=== PATIENT | female | born 1950 | race Caucasian/White ===

== ENCOUNTER 2016-06-22 01:35 | Emergency (ER) | payer MEDICARE ==
[~2016-06-22] VITALS: Ht 160 cm; Wt 68.0 kg
[2016-06-22 01:38] VITALS: BP 133/66; PULSE 102; RESP 16; TEMP 98.5; O2SAT 93
[2016-06-22] MEDS ORDERED: D31000CA (02:05)
[2016-06-22] MEDS ORDERED: AMLO10TA2 PO (02:05)
[2016-06-22] MEDS ORDERED: AMOX875T2 PO (02:05)
[2016-06-22] MEDS ORDERED: ASPI81TA81 (02:05)
[2016-06-22] MEDS ORDERED: SERT-132 PO (02:05)
[2016-06-22] MEDS ORDERED: LISI-515 PO (02:05)
[2016-06-22] MEDS ORDERED: SIMV40TA PO (02:05)
[2016-06-22] MEDS ORDERED: TRAD5TAB PO (02:05)
[2016-06-22] MEDS ORDERED: NOVOLOGP2 SQ (02:05)
[2016-06-22] MEDS ORDERED: INSU1INJ14 SQ (02:07)
[2016-06-22] MEDS ORDERED: CLOT10TR PO (03:16)
[2016-06-22] MEDS ORDERED: ALBUAER3 INH (03:16)
--- NOTE | 2016-06-22 03:16 | PD ---
HPI Chief Complaint: Medical Clearance Time Seen by Provider: 02:15 Travel History International Travel<30 days: No Contact w/Intl Traveler<30days: No Traveled to known affect area: No History of Present Illness HPI This is a 66-year-old female who presents to the emergency department with pain in her joints involving her hips and knees. The pain started today, has been constant, worse with walking, improved with rest. She did have a fever of 100 this morning. The patient has been sick with a productive cough with yellow sputum and a sore throat for one month now. She is completed a course of doxycycline and Keflex for these symptoms and her primary doctor yesterday put her on Augmentin. She says that her joint pain started after she took the Augmentin. PFSH Past Medical History Hx Anticoagulant Therapy: Yes (ASA) Cardiovascular Problems: Yes (HTN) Diabetes: Yes Patient Takes Glucophage: No Diminished Hearing: No (left side [place]) Hypertension: Yes ?: Not Menopausal: Yes Dilation and Curettage (D&C): Yes Social History Alcohol Use: Yes (occasional) Tobacco Use: Yes (<1PPD) Substance Use: No Allergies-Medications (Allergen,Severity, Reaction): Coded Allergies: No Known Allergies (Unverified , 06/22/16) Reported Meds & Prescriptions Reported Meds & Active Scripts Active Reported Tresiba Flextouch Pen Inj (Insulin Degludec Inj) 300 unit/3 ML Pen 30 Units SQ HS Amlodipine (Amlodipine Besylate) 10 Mg Tab 10 Mg PO DAILY Aspir-81 (Aspirin) 81 Mg Tabdr Tradjenta (Linagliptin) 5 Mg Tab 5 Mg PO DAILY Sertraline (Sertraline HCl) 50 Mg Tab 50 Mg PO DAILY Amoxicillin-Clavulanate 875-125 mg Tab 875 Mg PO BID not for use in CrCl <30 mL/minute Lisinopril 20 Mg Tab 20 Mg PO BID Simvastatin 40 Mg Tab 40 Mg PO HS D3 (Cholecalciferol) 1,000 Unit Cap Novolog Inj (Insulin Aspart) 1,000 Unit/10 Ml Vial 8 Units SQ TIDAC Review of Systems Except as stated in HPI: all other systems reviewed are Neg Physical Exam Narrative GENERAL:Well appearing, no acute distress SKIN: Warm and dry. HEAD: Atraumatic. Normocephalic. EYES: Pupils equal and round. No injection or drainage. ENT: Moist mucous membranes. White membrane overlying the tongue and posterior pharynx with no tonsillar exudate NECK: Trachea midline. CARDIOVASCULAR: Regular rate and rhythm. No murmur appreciated. RESPIRATORY: Clear to auscultation. Breath sounds equal bilaterally. GASTROINTESTINAL: Abdomen soft, non-tender, nondistended. MUSCULOSKELETAL: No obvious deformities. NEUROLOGICAL: Awake and alert. No obvious cranial nerve deficits. Moving all extremities. PSYCHIATRIC: Appropriate mood and affect; insight and judgment normal. Data Data Last Documented VS Vital Signs Date Time Temp Pulse Resp B/P Pulse Ox O2 Delivery O2 Flow Rate FiO2 06/22/16 01:38 98.5 102 16 133/66 93 MDM Medical Decision Making Medical Screen Exam Complete: Yes Emergency Medical Condition: Yes Interpretation(s) Afebrile, mild tachycardia, mild hypoxia Differential Diagnosis Bronchitis, viral syndrome, pneumonia, sepsis, COPD Narrative Course This is a 66-year-old female who presents the emergency department with symptoms consistent with bronchitis with a productive cough with yellow sputum and sore throat. She says she started to have body aches and joint pains today after taking Augmentin. She is very well-appearing and nontoxic on exam. She has evidence of thrush which I suspect is the etiology of her sore throat. I counseled patient on deferring antibiotics at this time as I suspect she has a viral syndrome causing her symptoms. I think she benefit from a bronchodilator given her smoking history. Patient will be discharged home and was counseled to discontinue Augmentin. Diagnosis Primary Impression: Thrush Additional Impression: Acute bronchitis, viral Patient Instructions: General Instructions Additional Instructions: If you develop severe shortness of breath, chest pain, or difficulty breathing return to the emergency department. Use albuterol every 4 hours for the next 2 days. Then use as needed for wheezing. Follow up with your primary care physician in 2-3 days if your symptoms have not improved. Med/Other Pt SpecificInfo: Prescription(s) given Scripts Albuterol 8.5 GM Inh (Proair Hfa 8.5 GM Inh)90 Mcg/Act Aer2 Puff INH Q6H PRN ( SHORTNESS OF BREATH) #1 INHALER Ref 0 108 mcg/actuation Prov:Margy Gil MD 06/22/16 Clotrimazole April 10 Mg Troc10 Mg PO 5 TIMES A DAY 7 Days Ref 0 Prov:Margy Gil MD 06/22/16 Disposition: 01 DISCHARGE HOME Condition: Stable Margy Gil MD Jun 22, 2016 03:16
== END 2016-06-22 04:04 | disposition home or self-care (01) ==
LOC: NEPE 01:35
DX: J20.9 Acute bronchitis, unspecified (principal); B37.9 Candidiasis, unspecified; E11.9 Type 2 diabetes mellitus without complications; I10 Essential (primary) hypertension; F17.210 Nicotine dependence, cigarettes, uncomplicated; Z79.82 Long term (current) use of aspirin
CPT/HCPCS: 99283

== ENCOUNTER 2017-09-07 15:02 | Inpatient (IN) | payer MEDICARE ==
[~2017-09-07] VITALS: Ht 160 cm; Wt 71.0 kg
[~2017-09-07 15:02] MED LIST: ALBUAER3 INH; AMLO10TA2 PO; AMOX875T2 PO; ASPI81TA81; CLOT10TR PO; INSU1INJ14 SQ; LISI-515 PO; NOVOLOGP2 SQ; SERT-132 PO; SIMV40TA PO; TRAD5TAB PO; [UNRECOGNIZED DRUG - CODE]
[2017-09-07 15:08] VITALS: BP 128/60; PULSE 90; RESP 22; TEMP 98.6; O2SAT 92
[2017-09-07] MEDS ORDERED: diphenhydrAMINE HCL 50 MG/ML VIAL IV PUSH ONE (15:45)
[2017-09-07] MEDS ORDERED: methylPREDNISolone SOD SUCC 125 MG/2 ML VIAL IV PUSH ONE (15:45)
--- NOTE | 2017-09-07 15:52 | PD ---
HPI Chief Complaint: Allergic/Adverse Reaction Time Seen by Provider: 15:23 Travel History International Travel<30 days: No Contact w/Intl Traveler<30days: No Traveled to known affect area: No History of Present Illness HPI 67-year-old female that presents to the ED for evaluation of possible allergic reaction. Per patient she was diagnosed by her doctor with pneumonia yesterday and started on Levaquin yesterday. She is took 1 dose yesterday and today she developed swelling and pain as well as rash on her chest and swelling medially to her joints in the arms and legs. She states that she has pain in this area. She denies any history of this in the past. She does have allergies to Augmentin. She states that she has been having cold-like symptoms for about a week now. She has a history of diabetes, high blood pressure, smokes. She states compliance with her medications except for the Levaquin which she did not take today because of the symptoms. She is concerned for reaction. She denies any throat swelling. She states having a lot of cough and congestion. She states that she did have a chest x-ray recently by the [facility] doctor that showed a pneumonia on both sides. She has no other medical issues. She denies any abdominal pain. Cough is productive. No recent travel. No sick contacts. PFSH Past Medical History Hx Anticoagulant Therapy: Yes (ASA) Cardiovascular Problems: Yes High Cholesterol: Yes Diabetes: Yes Patient Takes Glucophage: No Diminished Hearing: No (left side [place]) Hypertension: Yes Respiratory: Yes Menopausal: Yes Dilation and Curettage (D&C): Yes Social History Alcohol Use: Yes (occasional) Tobacco Use: Yes (<1PPD) Substance Use: No Allergies-Medications (Allergen,Severity, Reaction): Coded Allergies: amoxicillin (Verified Allergy, Severe, Joint Pain, 09/07/17) clavulanic acid (Verified Allergy, Severe, Joint Pain, 09/07/17) levofloxacin (Verified Allergy, Intermediate, 09/07/17) JOINT PAIN AND RASH Reported Meds & Prescriptions Reported Meds & Active Scripts Active Proair Hfa 8.5 GM Inh (Albuterol Sulfate) 90 Mcg/Act Aer 2 Puff INH Q6H PRN 108 mcg/actuation Clotrimazole April (Clotrimazole) 10 Mg Troc 10 Mg PO 5 TIMES A DAY 7 Days Reported Tresiba Flextouch Pen Inj (Insulin Degludec Inj) 300 unit/3 ML Pen 30 Units SQ HS Amlodipine (Amlodipine Besylate) 10 Mg Tab 10 Mg PO DAILY Aspir-81 (Aspirin) 81 Mg Tabdr Tradjenta (Linagliptin) 5 Mg Tab 5 Mg PO DAILY Sertraline (Sertraline HCl) 50 Mg Tab 50 Mg PO DAILY Amoxicillin-Clavulanate 875-125 mg Tab 875 Mg PO BID not for use in CrCl <30 mL/minute Lisinopril 20 Mg Tab 20 Mg PO BID Simvastatin 40 Mg Tab 40 Mg PO HS D3 (Cholecalciferol) 1,000 Unit Cap Novolog Inj (Insulin Aspart) 1,000 Unit/10 Ml Vial 8 Units SQ TIDAC Review of Systems Except as stated in HPI: all other systems reviewed are Neg Physical Exam Narrative GENERAL: SKIN: Warm and dry. Patient has an erythematous rash to the chest that is itchy and not painful. No other rashes noted. Patient does have some soft tissue swelling around the joints especially on the left wrist. No erythema noted however. HEAD: Atraumatic. Normocephalic. EYES: Pupils equal and round. No scleral icterus. No injection or drainage. ENT: No nasal bleeding or discharge. Mucous membranes pink and moist. Tongue is midline. No uvula deviation. NECK: Trachea midline. No JVD. CARDIOVASCULAR: Regular rate and rhythm. No murmurs, S3, S4. RESPIRATORY: No accessory muscle use. Clear to auscultation. Breath sounds equal bilaterally. GASTROINTESTINAL: Abdomen soft, non-tender, nondistended. Hepatic and splenic margins not palpable. MUSCULOSKELETAL: Extremities without clubbing, cyanosis, or edema. No obvious deformities. Full range of motion of the upper and lower extremities bilaterally. 2+ pulses bilaterally. NEUROLOGICAL: Awake and alert. No obvious cranial nerve deficits. Motor grossly within normal limits. Five out of 5 muscle strength in the arms and legs. Normal speech. PSYCHIATRIC: Appropriate mood and affect; insight and judgment normal. Data Data Last Documented VS Vital Signs Date Time Temp Pulse Resp B/P (MAP) Pulse Ox O2 Delivery O2 Flow Rate FiO2 09/07/17 15:17 94 Nasal Cannula 2.00 09/07/17 15:08 98.6 90 22 128/60 (82) Orders Orders Complete Blood Count With Diff (09/07/17 15:25) Comprehensive Metabolic Panel (09/07/17 15:25) Creatine Kinase (Cpk) (09/07/17 15:25) Magnesium (Mg) (09/07/17 15:25) Chest, Single Ap (09/07/17 ) Methylprednisolone So Succ Inj (Solumedr (09/07/17 15:45) Diphenhydramine Inj (Benadryl Inj) (09/07/17 15:45) Lactic Acid Sepsis Protocol (09/07/17 16:06) Blood Culture (09/07/17 16:06) CKMB% (09/07/17 15:30) CKMB (09/07/17 15:30) Sodium Chlorid 0.9% 500 Ml Inj (Ns 500 M (09/07/17 16:30) Ceftriaxone Inj (Rocephin Inj) (09/07/17 17:00) Azithromycin Inj (Zithromax Inj) (09/07/17 17:00) Complete Blood Count With Diff (09/08/17 06:00) Basic Metabolic Panel (Bmp) (09/08/17 06:00) Magnesium (Mg) (09/08/17 06:00) Sodium Chloride 0.9% Flush (Ns Flush) (09/07/17 17:00) Sodium Chloride 0.9% Flush (Ns Flush) (09/07/17 21:00) Ceftriaxone Inj (Rocephin Inj) (09/08/17 18:00) Azithromycin (Zithromax) (09/08/17 09:00) Methylprednisolone So Succ Inj (Solumedr (09/07/17 17:00) Admit To Inpatient (09/07/17 ) Code Status (09/07/17 17:00) Vital Signs (Adult) Q4H (09/07/17 17:00) Activity Oob With Assistance PRN (09/07/17 17:00) Notify Parameters (09/07/17 17:00) Intake + Output Q8H (09/07/17 17:00) ^ Smoking Cessation Counseling (09/07/17 17:00) Diet 1800 Ada Cons Carb (09/07/17 Dinner) Chest, Pa & Lat (09/08/17 08:00) Resp Oxygen Mike C Titrat 1-4 L (09/07/17 ) Consult Pt Eval & Treat (09/07/17 17:00) Scd Bilateral/Knee High MARI.BID (09/07/17 17:00) Inpatient Certification (09/07/17 ) Albuterol-Ipratropium Neb (Duoneb Neb) (09/07/17 20:00) Amlodipine (Norvasc) (09/08/17 09:00) Lisinopril (Prinivil) (09/07/17 21:00) Sertraline (Zoloft) (09/08/17 09:00) Patient Own Medication (09/08/17 09:00) Pravastatin (Pravachol) (09/07/17 21:00) Insulin Aspart Supplemtl Scale (Novolog (09/07/17 21:00) Insulin Detemir Inj (Levemir Inj) (09/07/17 21:00) Admit Order (Ed Use Only) (09/07/17 17:11) Labs Laboratory Tests Test 09/07/17 15:30 09/07/17 16:10 White Blood Count 17.8 TH/MM3 Red Blood Count 3.87 MIL/MM3 Hemoglobin 12.2 GM/DL Hematocrit 34.8 % Mean Corpuscular Volume 89.8 FL Mean Corpuscular Hemoglobin 31.5 PG Mean Corpuscular Hemoglobin Concent 35.1 % Red Cell Distribution Width 12.7 % Platelet Count 337 TH/MM3 Mean Platelet Volume 8.1 FL Neutrophils (%) (Auto) 87.0 % Lymphocytes (%) (Auto) 5.1 % Monocytes (%) (Auto) 7.2 % Eosinophils (%) (Auto) 0.7 % Basophils (%) (Auto) 0.0 % Neutrophils # (Auto) 15.5 TH/MM3 Lymphocytes # (Auto) 0.9 TH/MM3 Monocytes # (Auto) 1.3 TH/MM3 Eosinophils # (Auto) 0.1 TH/MM3 Basophils # (Auto) 0.0 TH/MM3 CBC Comment DIFF FINAL Differential Comment Blood Urea Nitrogen 29 MG/DL Creatinine 1.44 MG/DL Random Glucose 102 MG/DL Total Protein 6.8 GM/DL Albumin 2.5 GM/DL Calcium Level 8.8 MG/DL Magnesium Level 2.1 MG/DL Alkaline Phosphatase 131 U/L Aspartate Amino Transf (AST/SGOT) 49 U/L Alanine Aminotransferase (ALT/SGPT) 65 U/L Total Bilirubin 0.5 MG/DL Sodium Level 135 MEQ/L Potassium Level 4.0 MEQ/L Chloride Level 100 MEQ/L Carbon Dioxide Level 25.0 MEQ/L Anion Gap 10 MEQ/L Estimat Glomerular Filtration Rate 36 ML/MIN Total Creatine Kinase 249 U/L Creatine Kinase MB 2.0 NG/ML Creatine Kinase MB % 0.8 % Lactic Acid Level 0.7 mmol/L MDM Medical Decision Making Medical Screen Exam Complete: Yes Emergency Medical Condition: Yes Medical Record Reviewed: Yes Interpretation(s) CBC & BMP Diagram 09/07/17 15:30 Total Protein 6.8, Albumin 2.5 L, Calcium Level 8.8, Magnesium Level 2.1, Alkaline Phosphatase 131 H, Aspartate Amino Transf (AST/SGOT) 49 H, Alanine Aminotransferase (ALT/SGPT) 65 H, Total Bilirubin 0.5 Last Impressions Chest X-Ray 09/07/17 0000 Signed Impressions: Service Date/Time: Saturday, September 07, 2017 15:44 - CONCLUSION: 1. Left basilar infiltrate. Treatment and followup to resolution. Arnol Cohen MD lactic acid WNL Differential Diagnosis Allergic reaction versus pneumonia versus bronchitis versus worsening pneumonia versus dehydration versus liver injury versus rhabdo versus failed outpatient treatment Narrative Course 67-year-old female that presents to the ED for evaluation of an allergic reaction of pneumonia. Patient was properly examined and was found to have signs and symptoms of unclear etiology but likely reaction to the Levaquin. Levaquin was added to her allergies. She was given Solu-Medrol and Benadryl here IV. Labs and imaging were ordered. Labs and imaging showed elevated white blood cell count as well as elevated LFTs and kidney function appears to be abnormal. We do not have any records of previous labs and this could be new secondary to the infection. By CURB-65 patient has moderate risk for mortality and recommendation is observation versus inpatient. Patient has not really failed outpatient treatment she only took 1 dose of the Levaquin but do recommend admission for further eval per my attending Dr Chaudhari. Patient will start IV ceftriaxone as well as azithromycin. [facility] doctor susan and Dr Simon agrees to admission. Sepsis Criteria SIRS Criteria (2 or more): RR > 20 or PaCO2 < 32, WBC > 02355, < 4000 or > 10 % bands Sepsis Criteria (SIRS+source): Infect source susp/known Criteria Outcome: Meets sepsis criteria Diagnosis Primary Impression: PNA (pneumonia) Qualified Codes: J18.1 - Lobar pneumonia, unspecified organism Additional Impression: MAGALY (acute kidney injury) Admitting Information Admitting Physician Requests: Admit Bunny Gilmore Sep 07, 2017 15:52
[2017-09-07 15:58] LABS: AUTOMATED NEUTROPHIL # 15.5 TH/MM3 (1.8-7.7); EOSINOPHIL # 0.1 TH/MM3 (0-0.4); EOSINOPHIL % 0.7 % (0.0-4.0); HEMATOCRIT 34.8 % (35.0-46.0); HEMOGLOBIN 12.2 GM/DL (11.6-15.3); LYMPH % 5.1 % (9.0-44.0); LYMPHOCYTE # 0.9 TH/MM3 (1.0-4.8); MEAN CELL VOLUME 89.8 FL (80.0-100.0); MEAN CORPUSCULAR HEMOGLOBIN 31.5 PG (27.0-34.0); MEAN CORPUSCULAR HGB CONC 35.1 % (32.0-36.0); MEAN PLATELET VOLUME 8.1 FL (7.0-11.0); MONO % 7.2 % (0.0-8.0); MONOCYTE # 1.3 TH/MM3 (0-0.9); PLATELET COUNT 337 TH/MM3 (150-450); RED BLOOD COUNT 3.87 MIL/MM3 (4.00-5.30); RED CELL DISTRIBUTION WIDTH 12.7 % (11.6-17.2); WHITE BLOOD COUNT 17.8 TH/MM3 (4.0-11.0)
--- NOTE | 2017-09-07 16:07 | RADRPT ---
EXAM DATE/TIME: 09/07/2017 15:44 [place] COMPARISON: No previous studies available for comparison. INDICATIONS : Shortness of breath. MEDICAL HISTORY : Chronic obstructive pulmonary disease. Hypertension SURGICAL HISTORY : None. ENCOUNTER: Initial ACUITY: 2 days PAIN SCORE: 0/10 LOCATION: Bilateral chest FINDINGS: A single view of the chest demonstrates left basilar infiltrate. Right lung clear. Osseous structure s are intact. CONCLUSION: 1. Left basilar infiltrate. Treatment and followup to resolution. Arnol Cohen MD on September 07, 2017 at 16:04 Board Certified Radiologist. This report was verified electronically.
[2017-09-07 16:24] LABS: ALBUMIN 2.5 GM/DL (3.4-5.0); ALT (GPT) 65 U/L (10-53); AST (GOT) 49 U/L (15-37); BLOOD UREA NITROGEN 29 MG/DL (7-18); CALCIUM 8.8 MG/DL (8.5-10.1); CHLORIDE 100 MEQ/L (98-107); CREATININE 1.44 MG/DL (0.50-1.00); GLOMERULAR FILTRATION RATE 36 ML/MIN (>89); GLUCOSE,RANDOM 102 MG/DL (74-106); MAGNESIUM 2.1 MG/DL (1.5-2.5); SODIUM (NA) 135 MEQ/L (136-145)
[2017-09-07 16:26] LABS: ALKALINE PHOSPHATASE 131 U/L (45-117); TOTAL BILIRUBIN ADULT 0.5 MG/DL (0.2-1.0); TOTAL PROTEIN 6.8 GM/DL (6.4-8.2)
[2017-09-07] MEDS ORDERED: SODIUM CHLORID 0.9% 500 ML INJ 500 ML IV ONE (16:30)
[2017-09-07] MEDS ORDERED: methylPREDNISolone SOD SUCC 40 MG/1 ML VIAL IV PUSH SCH (17:00)
[2017-09-07] MEDS ORDERED: AZITHROMYCIN INJ 500 MG in SODIUM CHLOR 0.9% 250 ML INJ 250 ML IV ONE (17:00)
[2017-09-07] MEDS ORDERED: SODIUM CHLORIDE 0.9% FLUSH 10 ML FLUSH IV FLUSH PRN (17:00)
[2017-09-07] MEDS ORDERED: cefTRIAXone INJ 1,000 MG in SODIUM CHLORIDE 0.9% INJ 100 ML IV ONE (17:00)
--- NOTE | 2017-09-07 17:12 | HHI.HP ---
HPI Service [facility] Hospitalists Primary Care Physician Cherri Sanon M.D. Admission Diagnosis Pneumonia, medication reaction Chief Complaint: "Allergic reaction" Travel History International Travel<30 Days: No Contact w/Intl Traveler <30 Da: No Traveled to Known Affected Are: No History of Present Illness This is a 67-year-old female patient with past medical history which includes depression, chronic kidney disease stage III, diabetes mellitus, hypertension, hyperlipidemia, current tobacco use and PAD status post stent bilateral external iliac arteries. Patient was seen yesterday at her outpatient PCP Dr. Sanon office with complaints of generalized malaise 1 week rhinorrhea productive cough and congestion with mild fever 1 week. Prior to feeling unwell patient traveled to visit her granddaughter in [place]. Chest x-ray () obtained and revealed patchy infiltrates at both lung bases particularly the left base rule out pneumonia. Patient diagnosed with bilateral pneumonia and started on Levaquin. Patient took 1 dose of Levaquin yesterday and then today she developed a rash on her chest and swelling of her bilateral elbows and knees. Patient also reports pain in her upper and lower extremity joints. Patient denies any throat swelling, SOB or difficult swallowing. Patient denies chest pain or sick contacts. Chest x-ray (09/07)revealed left basal infiltrate. Also distended appearance of bowel seen on CXR Patient reports last BM 3 days again. Patient reports some time she will go 3- 4 days between BMs and sometime she has 3-4 BMs in a day. Patient denies taking narcotic medication or laxatives. Review of Systems Constitutional: COMPLAINS OF: Fatigue, Fever, DENIES: Chills Eyes: DENIES: Blurred vision, Diplopia, Vision loss Respiratory: COMPLAINS OF: Cough, Sputum production, DENIES: Shortness of breath Cardiovascular: DENIES: Chest pain, Dyspnea on Exertion Gastrointestinal: DENIES: Abdominal pain, Nausea, Vomiting Musculoskeletal: COMPLAINS OF: Joint pain, Muscle aches, Stiffness, Joint Swelling Integumentary: COMPLAINS OF: Rash Neurologic: DENIES: Abnormal gait, Headache, Localized weakness, Speech Problems Psychiatric: DENIES: Anxiety, Confusion, Depression Past Family Social History Past Medical History depression, chronic kidney disease stage III, diabetes mellitus, hypertension, hyperlipidemia, current tobacco use and PAD status post stent bilateral external iliac arteries Past Surgical History stent bilateral external iliac arteries Tonsillectomy Reported Medications Proair Hfa 8.5 GM Inh (Albuterol Sulfate) 90 Mcg/Act Aer 2 Puff INH Q6H PRN 108 mcg/actuation Clotrimazole April (Clotrimazole) 10 Mg Troc 10 Mg PO 5 TIMES A DAY 7 Days Tresiba Flextouch Pen Inj (Insulin Degludec Inj) 300 unit/3 ML Pen 30 Units SQ HS Amlodipine (Amlodipine Besylate) 10 Mg Tab 10 Mg PO DAILY Aspir-81 (Aspirin) 81 Mg Tabdr Tradjenta (Linagliptin) 5 Mg Tab 5 Mg PO DAILY Sertraline (Sertraline HCl) 50 Mg Tab 50 Mg PO DAILY Amoxicillin-Clavulanate 875-125 mg Tab 875 Mg PO BID not for use in CrCl <30 mL/minute Lisinopril 20 Mg Tab 20 Mg PO BID Simvastatin 40 Mg Tab 40 Mg PO HS D3 (Cholecalciferol) 1,000 Unit Cap Novolog Inj (Insulin Aspart) 1,000 Unit/10 Ml Vial 8 Units SQ TIDAC Allergies: Coded Allergies: amoxicillin (Verified Allergy, Severe, Joint Pain, 09/07/17) clavulanic acid (Verified Allergy, Severe, Joint Pain, 09/07/17) levofloxacin (Verified Allergy, Intermediate, 09/07/17) JOINT PAIN AND RASH Family History Noncontributory Social History Rare EtOH Tobacco abuse one half pack per day Denies illicit drug use Physical Exam Vital Signs Vital Signs Date Time Temp Pulse Resp B/P (MAP) Pulse Ox O2 Delivery O2 Flow Rate FiO2 09/07/17 15:17 94 Nasal Cannula 2.00 09/07/17 15:08 98.6 90 22 128/60 (82) 92 Physical Exam GENERAL: This is a well-nourished, well-developed patient, appears fatigued SKIN: faint erythematous rash across chest EYES: Extraocular motions intact. No scleral icterus. No injection or drainage. ENT: Nose without bleeding, purulent drainage or septal hematoma. Throat without erythema, tonsillar hypertrophy or exudate. Uvula midline. Airway patent. NECK: Trachea midline. No JVD or lymphadenopathy. Supple, nontender, no meningeal signs. CARDIOVASCULAR: Regular rate and rhythm RESPIRATORY: Decreased air movement. rhonchi bilateral lower lobes GASTROINTESTINAL: Abdomen soft, non-tender, nondistended. Normoactive bowel sounds x 4 quadrants MUSCULOSKELETAL: Extremities without clubbing, cyanosis, or edema. No joint tenderness, effusion, or edema noted. No calf tenderness. Negative Homans sign bilaterally. NEUROLOGICAL: Awake and alert. No focal deficits noted. Motor and sensory grossly within normal limits. Five out of 5 muscle strength in all muscle groups. Laboratory Laboratory Tests Test 09/07/17 15:30 09/07/17 16:10 White Blood Count 17.8 Red Blood Count 3.87 Hemoglobin 12.2 Hematocrit 34.8 Mean Corpuscular Volume 89.8 Mean Corpuscular Hemoglobin 31.5 Mean Corpuscular Hemoglobin Concent 35.1 Red Cell Distribution Width 12.7 Platelet Count 337 Mean Platelet Volume 8.1 Neutrophils (%) (Auto) 87.0 Lymphocytes (%) (Auto) 5.1 Monocytes (%) (Auto) 7.2 Eosinophils (%) (Auto) 0.7 Basophils (%) (Auto) 0.0 Neutrophils # (Auto) 15.5 Lymphocytes # (Auto) 0.9 Monocytes # (Auto) 1.3 Eosinophils # (Auto) 0.1 Basophils # (Auto) 0.0 CBC Comment DIFF FINAL Differential Comment Blood Urea Nitrogen 29 Creatinine 1.44 Random Glucose 102 Total Protein 6.8 Albumin 2.5 Calcium Level 8.8 Magnesium Level 2.1 Alkaline Phosphatase 131 Aspartate Amino Transf (AST/SGOT) 49 Alanine Aminotransferase (ALT/SGPT) 65 Total Bilirubin 0.5 Sodium Level 135 Potassium Level 4.0 Chloride Level 100 Carbon Dioxide Level 25.0 Anion Gap 10 Estimat Glomerular Filtration Rate 36 Total Creatine Kinase 249 Creatine Kinase MB 2.0 Creatine Kinase MB % 0.8 Lactic Acid Level 0.7 Date/Time Source Procedure Growth Status 09/07/17 16:10 Blood Peripheral Aerobic Blood Culture Pending Received 09/07/17 16:10 Blood Peripheral Anaerobic Blood Culture Pending Received Result Diagram: 09/07/17 1530 09/07/17 1530 Imaging Last Impressions Chest X-Ray 09/07/17 0000 Signed Impressions: Service Date/Time: Saturday, September 07, 2017 15:44 - CONCLUSION: 1. Left basilar infiltrate. Treatment and followup to resolution. MD Cynthia Otoole VTE Risk Assessment Caprini VTE Risk Assessment: No/Low Risk (score <= 1) Caprini Risk Assessment Model Point Value = 1 Point Value = 2 Point Value = 3 Point Value = 5 Age 41-60 Minor surgery BMI > 25 kg/m2 Swollen legs Varicose veins or History of unexplained or recurrent spontaneous Oral contraceptives or hormone replacement Sepsis (< 1 month) Serious lung disease, including pneumonia (< 1 month) Abnormal pulmonary function Acute myocardial infarction Congestive heart failure (< 1 month) History of inflammatory bowel disease Medical patient at bed rest Age 61-74 Arthroscopic surgery Major open surgery (> 45 min) Laparoscopic surgery (> 45 min) Malignancy Confined to bed (> 72 hours) Immobilizing plaster cast Central venous access Age >= 75 History of VTE Family history of VTE Factor V Leiden Prothrombin [id number] Lupus anticoagulant Anticardiolipin antibodies Elevated serum homocysteine Heparin-induced thrombocytopenia Other congenital or acquired thrombophilia Stroke (< 1 month) Elective arthroplasty Hip, pelvis, or leg fracture Acute spinal cord injury (< 1 month) Prophylaxis Regimen Total Risk Factor Score Risk Level Prophylaxis Regimen 0-1 Low Early ambulation 2 Moderate Order ONE of the following: *Sequential Compression Device (SCD) *Heparin 5000 units SQ BID 3-4 Higher Order ONE of the following medications: *Heparin 5000 units SQ TID *Enoxaparin/Lovenox 40 mg SQ daily (WT < 150 kg, CrCl > 30 mL/min) *Enoxaparin/Lovenox 30 mg SQ daily (WT < 150 kg, CrCl > 10-29 mL/min) *Enoxaparin/Lovenox 30 mg SQ BID (WT < 150 kg, CrCl > 30 mL/min) AND/OR *Sequential Compression Device (SCD) 5 or more Highest Order ONE of the following medications: *Heparin 5000 units SQ TID (Preferred with Epidurals) *Enoxaparin/Lovenox 40 mg SQ daily (WT < 150 kg, CrCl > 30 mL/min) *Enoxaparin/Lovenox 30 mg SQ daily (WT < 150 kg, CrCl > 10-29 mL/min) *Enoxaparin/Lovenox 30 mg SQ BID (WT < 150 kg, CrCl > 30 mL/min) AND *Sequential Compression Device (SCD) Assessment and Plan Problem List: (1) PNA (pneumonia) ICD Codes: J18.9 - Pneumonia, unspecified organism Plan: Patient presented to PT PCPs office yesterday diagnosed with bilateral pneumonia and started on Levaquin. Had outpatient Chest x-ray (09/06/17) obtained and revealed patchy infiltrates at both lung bases particularly the left base rule out pneumonia. Patient took 1 dose of Levaquin yesterday and then today she developed swelling and pain as well as rash on her chest and swelling medially to her joints in the arms and legs. Patient also reports pain in her upper and lower extremity joints. Patient presents to the emergency department today due to medication reaction to Levaquin. Chest x-ray (09/07)revealed left basal infiltrate. Also distended appearance of bowel seen on CXR KUB pending Patient started on Rocephin and azithromycin Supplemental oxygen as needed DuoNeb every 6 hours while awake and as needed Solu medrol 60 mg Q6H Repeat chest x-ray in a.m. DVT prophylaxis with SCDs (2) Medication reaction ICD Codes: T88.7XXA - Unspecified adverse effect of drug or medicament, initial encounter Plan: Patient diagnosed with bilateral pneumonia and started on Levaquin. Patient took 1 dose of Levaquin yesterday and then today she developed swelling and pain as well as rash on her chest and swelling medially to her joints in the arms and legs. Patient also reports pain in her upper and lower extremity joints. Levaquin DC'd (3) Diabetes mellitus ICD Codes: E11.9 - Type 2 diabetes mellitus without complications Plan: Patient takes Tradjenta 5 mg PO daily, Novolog 8 units SQ TID and Tresiba 30 units QHS. Will hold home regimen while patient is in the hospital Start Levemir 10 units SQ nightly Accu-Cheks before meals at bedtime with high-dose sliding scale insulin coverage Diabetic diet (4) HTN (hypertension) ICD Codes: I10 - Essential (primary) hypertension Plan: Continue patient's home amlodipine 10 mg p.o. daily and lisinopril 20 mg p.o. twice daily (5) Hyperlipidemia ICD Codes: E78.5 - Hyperlipidemia, unspecified Plan: Continue patient's home simvastatin 40 mg p.o. nightly (6) Depression ICD Codes: F32.9 - Major depressive disorder, single episode, unspecified Plan: Continue patient's home sertraline Assessment and Plan Patient examined. Assessment and plan formulated with Rossana Ramirez PA-C. I agree with the above. 67 y/o F. Current smoker. Pt c/o several days of increased cough and SOB. CXR (09/07) --> infiltrates Pt started on levaquin, but developed joint pain. change abx to rocephin + azithromycin [email or web address]. Problem Qualifiers (1) PNA (pneumonia): Qualified Codes: J18.1 - Lobar pneumonia, unspecified organism Rossana Ramirez Sep 07, 2017 17:12 Job Simon DO Sep 09, 2017 04:46
[2017-09-07] MEDS ORDERED: PLAV75TA29 PO (18:11)
[2017-09-07] MEDS ORDERED: cloNIDine HCL 0.1 MG TAB PO PRN (18:15)
[2017-09-07 20:26] VITALS: O2SAT 94
[2017-09-07] MEDS: RESP: ALBUTEROL 2.5 MG/IPRATROPIUM 0.5 MG NEB (SCH) NEB (20:26)
[2017-09-07] MEDS: NS + KCL 20 MEQ INJ 1,000 ML IV SCH (20:55)
[2017-09-07] MEDS: PRAVASTATIN SOD 80 MG TAB PO SCH (20:57)
[2017-09-07] MEDS: LISINOPRIL 20 MG TAB PO SCH (20:57)
[2017-09-07] MEDS: SODIUM CHLORIDE 0.9% FLUSH 10 ML FLUSH IV FLUSH SCH (20:57)
[2017-09-07] MEDS: INSULIN ASPART SUPPLEMENTAL SCALE SQ SCH (20:58)
[2017-09-07] MEDS ORDERED: INSULIN DETEMIR 100 UNITS/ML VIAL SQ SCH (21:00)
[2017-09-07 21:11] VITALS: BP 125/66; PULSE 76; RESP 22; TEMP 98.3; O2SAT 95
[2017-09-08] VITALS (7 sets, daily range): BP systolic 111–138; BP diastolic 56–81; PULSE 80–94; RESP 19–21; TEMP 96.1–98.4; O2SAT 93–96
[2017-09-08] MEDS: methylPREDNISolone SOD SUCC 125 MG/2 ML VIAL IV PUSH SCH ×4 (00:04→18:00)
[2017-09-08] MEDS: NS + KCL 20 MEQ INJ 1,000 ML IV SCH (06:46)
[2017-09-08 06:52] LABS: AUTOMATED NEUTROPHIL # 19.8 TH/MM3 (1.8-7.7); BASOPHIL % 0.1 % (0.0-2.0); HEMATOCRIT 35.5 % (35.0-46.0); HEMOGLOBIN 11.7 GM/DL (11.6-15.3); LYMPH % 2.2 % (9.0-44.0); LYMPHOCYTE # 0.5 TH/MM3 (1.0-4.8); MEAN CORPUSCULAR HGB CONC 32.9 % (32.0-36.0); MEAN PLATELET VOLUME 9.1 FL (7.0-11.0); MONO % 4.4 % (0.0-8.0); MONOCYTE # 0.9 TH/MM3 (0-0.9); NEUT % 93.3 % (16.0-70.0); PLATELET COUNT 338 TH/MM3 (150-450); WHITE BLOOD COUNT 21.2 TH/MM3 (4.0-11.0)
[2017-09-08 07:12] LABS: BICARBONATE 18.9 MEQ/L (21.0-32.0); CALCIUM 6.7 MG/DL (8.5-10.1); CREATININE 1.28 MG/DL (0.50-1.00); MAGNESIUM 2.1 MG/DL (1.5-2.5)
[2017-09-08 07:37] LABS: CALCIUM-PROTEIN CORRECTED 7.2 MG/DL (8.5-10.1)
[2017-09-08] MEDS: SODIUM CHLORIDE 0.9% FLUSH 10 ML FLUSH IV FLUSH SCH ×2 (08:00→21:00)
[2017-09-08] MEDS: INSULIN ASPART SUPPLEMENTAL SCALE SQ SCH ×3 (08:00→22:14)
[2017-09-08] MEDS: RESP: ALBUTEROL 2.5 MG/IPRATROPIUM 0.5 MG NEB (SCH) NEB ×3 (08:32→19:50)
[2017-09-08] MEDS: CLOPIDOGREL 75 MG TAB PO SCH (09:00)
[2017-09-08] MEDS ORDERED: LINAGLIPTIN 5 MG PO SCH (09:00)
[2017-09-08] MEDS: AZITHROMYCIN 250 MG TAB PO SCH (09:00)
[2017-09-08] MEDS: SERTRALINE HCL 50 MG TAB PO SCH (09:00)
[2017-09-08] MEDS: LISINOPRIL 20 MG TAB PO SCH ×2 (09:00→20:36)
--- NOTE | 2017-09-08 09:52 | RADRPT ---
EXAM DATE/TIME: 09/08/2017 09:36 [facility] COMPARISON: CHEST SINGLE AP, September 07, 2017, 15:44. INDICATIONS : Evaluate for pneumonia. MEDICAL HISTORY : Hypertension. Diabetes mellitus type II. SURGICAL HISTORY : None. ENCOUNTER: Subsequent ACUITY: 3 days PAIN SCORE: 0/10 LOCATION: Bilateral chest FINDINGS: There is patchy proximal density at the left base unchanged right lung is clear. There is a small lef t greater than right effusion suspected. Heart size normal. Osseous structures demonstrate degenerati ve changes. CONCLUSION: Left basilar airspace disease and small bilateral effusions. Anshul Bhatt MD on September 08, 2017 at 9:47 Board Certified Radiologist. This report was verified electronically.
--- NOTE | 2017-09-08 15:55 | HHI.PR ---
Subjective Remarks Patient reports that her breathing feels better than yesterday but not back to normal Objective Vitals Vital Signs Date Time Temp Pulse Resp B/P (MAP) Pulse Ox O2 Delivery O2 Flow Rate FiO2 09/08/17 12:00 98.3 83 20 120/58 (78) 94 09/08/17 08:33 93 Nasal Cannula 2.00 09/08/17 08:00 97.4 80 20 111/57 (75) 93 09/08/17 00:00 98.4 80 20 119/56 (77) 94 09/07/17 21:11 98.3 76 22 125/66 (85) 95 09/07/17 20:26 94 Nasal Cannula 2.00 09/08/17 09/08/17 09/09/17 14:59 22:59 06:59 Intake Total 120 ml Balance 120 ml Intake Oral 120 ml # Voids 2 Result Diagram: 09/08/17 0410 09/08/17 0410 Other Results Laboratory Tests Test 09/07/17 15:30 09/07/17 16:10 09/08/17 04:10 White Blood Count 17.8 TH/MM3 21.2 TH/MM3 Red Blood Count 3.87 MIL/MM3 3.90 MIL/MM3 Hemoglobin 12.2 GM/DL 11.7 GM/DL Hematocrit 34.8 % 35.5 % Mean Corpuscular Volume 89.8 FL 91.0 FL Mean Corpuscular Hemoglobin 31.5 PG 30.0 PG Mean Corpuscular Hemoglobin Concent 35.1 % 32.9 % Red Cell Distribution Width 12.7 % 13.0 % Platelet Count 337 TH/MM3 338 TH/MM3 Mean Platelet Volume 8.1 FL 9.1 FL Neutrophils (%) (Auto) 87.0 % 93.3 % Lymphocytes (%) (Auto) 5.1 % 2.2 % Monocytes (%) (Auto) 7.2 % 4.4 % Eosinophils (%) (Auto) 0.7 % 0.0 % Basophils (%) (Auto) 0.0 % 0.1 % Neutrophils # (Auto) 15.5 TH/MM3 19.8 TH/MM3 Lymphocytes # (Auto) 0.9 TH/MM3 0.5 TH/MM3 Monocytes # (Auto) 1.3 TH/MM3 0.9 TH/MM3 Eosinophils # (Auto) 0.1 TH/MM3 0.0 TH/MM3 Basophils # (Auto) 0.0 TH/MM3 0.0 TH/MM3 CBC Comment DIFF FINAL DIFF FINAL Differential Comment Blood Urea Nitrogen 29 MG/DL 25 MG/DL Creatinine 1.44 MG/DL 1.28 MG/DL Random Glucose 102 MG/DL 296 MG/DL Total Protein 6.8 GM/DL 6.0 GM/DL Albumin 2.5 GM/DL Calcium Level 8.8 MG/DL 6.7 MG/DL Magnesium Level 2.1 MG/DL 2.1 MG/DL Alkaline Phosphatase 131 U/L Aspartate Amino Transf (AST/SGOT) 49 U/L Alanine Aminotransferase (ALT/SGPT) 65 U/L Total Bilirubin 0.5 MG/DL Sodium Level 135 MEQ/L 134 MEQ/L Potassium Level 4.0 MEQ/L 4.2 MEQ/L Chloride Level 100 MEQ/L 101 MEQ/L Carbon Dioxide Level 25.0 MEQ/L 18.9 MEQ/L Anion Gap 10 MEQ/L 14 MEQ/L Estimat Glomerular Filtration Rate 36 ML/MIN 41 ML/MIN Total Creatine Kinase 249 U/L Creatine Kinase MB 2.0 NG/ML Creatine Kinase MB % 0.8 % Lactic Acid Level 0.7 mmol/L Protein Corrected Calcium 7.2 MG/DL Imaging Last Impressions Chest X-Ray 09/07/17 0000 Signed Impressions: Service Date/Time: Thursday, September 07, 2017 15:44 - CONCLUSION: 1. Left basilar infiltrate. Treatment and followup to resolution. Arnol Cohen MD Objective Remarks GENERAL: This is a well-nourished, well-developed patient, in no apparent distress. SKIN: Erythematous raised maculopapular rash noted on back in anterior thighs consistent with drug eruption CARDIOVASCULAR: Regular rate and rhythm RESPIRATORY: diminished through out GASTROINTESTINAL: Abdomen soft, non-tender, nondistended. Normal active bowel sounds MUSCULOSKELETAL: Extremities without clubbing, cyanosis, or edema. NEURO: Alert & Oriented x4 to person, place, time, situation. Moves all ext x4 A/P Problem List: (1) PNA (pneumonia) ICD Codes: J18.9 - Pneumonia, unspecified organism Plan: Patient presented to PT PCPs office yesterday diagnosed with bilateral pneumonia and started on Levaquin. Had outpatient Chest x-ray (09/06/17) obtained and revealed patchy infiltrates at both lung bases particularly the left base rule out pneumonia. Patient took 1 dose of Levaquin yesterday and then today she developed swelling and pain as well as rash on her chest and swelling medially to her joints in the arms and legs. Patient also reports pain in her upper and lower extremity joints. Patient presents to the emergency department today due to medication reaction to Levaquin. Chest x-ray (09/07)revealed left basal infiltrate. Also distended appearance of bowel seen on CXR KUB initially refused -> now agreeable will reorder Patient started on Rocephin and azithromycin, patient now has a erythematous macular papular rash on back and upper thighs consistent with drug reaction () -DC Rocephin, Benadryl as needed for itching/rash Supplemental oxygen as needed DuoNeb every 6 hours while awake and as needed continue Solu medrol 60 mg Q6H DVT prophylaxis with SCDs (2) Medication reaction ICD Codes: T88.7XXA - Unspecified adverse effect of drug or medicament, initial encounter Plan: Patient diagnosed with bilateral pneumonia and started on Levaquin. Patient took 1 dose of Levaquin yesterday and then today she developed swelling and pain as well as rash on her chest and swelling medially to her joints in the arms and legs. Patient also reports pain in her upper and lower extremity joints. Levaquin DC'd (09/07) (09/07)Patient started on Rocephin and azithromycin, patient now has a erythematous macular papular rash on back and upper thighs consistent with drug reaction (09/08) -DC Rocephin, Benadryl as needed for itching/rash (3) Diabetes mellitus ICD Codes: E11.9 - Type 2 diabetes mellitus without complications Plan: Patient takes Tradjenta 5 mg PO daily, Novolog 8 units SQ TID and Tresiba 30 units QHS. Will hold home regimen while patient is in the hospital (09/07) Start Levemir 10 units SQ nightly Accu-Cheks before meals at bedtime with high-dose sliding scale insulin coverage Diabetic diet (09/08) patient's blood sugar running high 439 this morning 323 this afternoon will increase Levemir to 10 units twice daily continue to monitor with Accu- Cheks and sliding scale insulin coverage (4) HTN (hypertension) ICD Codes: I10 - Essential (primary) hypertension Plan: Continue patient's home amlodipine 10 mg p.o. daily and lisinopril 20 mg p.o. twice daily (5) Hyperlipidemia ICD Codes: E78.5 - Hyperlipidemia, unspecified Plan: Continue patient's home simvastatin 40 mg p.o. nightly (6) Depression ICD Codes: F32.9 - Major depressive disorder, single episode, unspecified Plan: Continue patient's home sertraline Assessment and Plan Patient examined. Assessment and plan formulated with Rossana Ramirez PA-C. I agree with the above. Pt less SOB from admission. Rash noted at back, upper chest, thighs. Exact onset unclear. Pt received levaquin but stopped after c/o joint pain. Pt started on rocephin + azithromycin upon admission 09/07 Stop rocephin. Observe rash continue IV steroid, duonebs. Problem Qualifiers (1) PNA (pneumonia): Qualified Codes: J18.1 - Lobar pneumonia, unspecified organism Rossana Ramirez Sep 08, 2017 15:55 Job Simon DO Sep 09, 2017 04:48
[2017-09-08] MEDS ORDERED: LEVOTHYROXINE SODIUM 100 MCG VIAL IV PUSH ONE (16:00)
--- NOTE | 2017-09-08 17:24 | RADRPT ---
EXAM DATE/TIME: 09/08/2017 15:38 [facility] COMPARISON: No previous studies available for comparison. INDICATIONS : Abdominal distention/pain. MEDICAL HISTORY : Hypertension. Chronic obstructive pulmonary disease. SURGICAL HISTORY : None. ENCOUNTER: Subsequent ACUITY: 2 days PAIN SCORE: 3/10 LOCATION: Abdomen. FINDINGS: Supine view of the abdomen was performed. Several loops of borderline small bowel in the mid abdomen. Air and stool is seen in the ascending colon and near the rectum. No gross free air or pneumatosis. Bilateral iliac artery stents in place. Degenerative changes of the lumbar spine. CONCLUSION: 1. Nonspecific bowel gas pattern with borderline air filled small bowel in the midabdomen. Findings m ay reflect developing adynamic ileus. Perez Corona MD on September 08, 2017 at 17:19 Board Certified Radiologist. This report was verified electronically.
[2017-09-08] MEDS ORDERED: cefTRIAXone INJ 1,000 MG in SODIUM CHLORIDE 0.9% INJ 100 ML IV SCH (18:00)
[2017-09-08] MEDS: PRAVASTATIN SOD 80 MG TAB PO SCH (20:36)
[2017-09-08] MEDS: INSULIN DETEMIR 100 UNITS/ML VIAL SQ SCH (22:13)
[2017-09-09] VITALS (8 sets, daily range): BP systolic 106–147; BP diastolic 53–79; PULSE 85–90; RESP 17–22; TEMP 97.6–98.3; O2SAT 92–95
[2017-09-09] MEDS: methylPREDNISolone SOD SUCC 125 MG/2 ML VIAL IV PUSH SCH ×5 (00:52→23:15)
[2017-09-09] MEDS: diphenhydrAMINE HCL 25 MG CAP PO PRN ×2 (06:31→23:07)
[2017-09-09] MEDS: RESP: ALBUTEROL 2.5 MG/IPRATROPIUM 0.5 MG NEB (SCH) NEB ×4 (07:50→21:57)
[2017-09-09] MEDS: INSULIN ASPART SUPPLEMENTAL SCALE SQ SCH ×4 (08:03→20:12)
[2017-09-09] MEDS: SODIUM CHLORIDE 0.9% FLUSH 10 ML FLUSH IV FLUSH SCH ×2 (08:03→20:12)
[2017-09-09] MEDS: CLOPIDOGREL 75 MG TAB PO SCH (08:04)
[2017-09-09] MEDS: AZITHROMYCIN 250 MG TAB PO SCH (08:04)
[2017-09-09] MEDS: LISINOPRIL 20 MG TAB PO SCH ×2 (08:04→20:12)
[2017-09-09] MEDS: SERTRALINE HCL 50 MG TAB PO SCH (08:04)
[2017-09-09] MEDS: INSULIN DETEMIR 100 UNITS/ML VIAL SQ SCH ×2 (08:05→20:12)
[2017-09-09 08:10] LABS: BICARBONATE 21.2 MEQ/L (21.0-32.0); CALCIUM 8.7 MG/DL (8.5-10.1); CREATININE 1.07 MG/DL (0.50-1.00)
[2017-09-09 08:12] LABS: AUTOMATED NEUTROPHIL # 22.4 TH/MM3 (1.8-7.7); BASOPHIL % 0.2 % (0.0-2.0); HEMATOCRIT 34.8 % (35.0-46.0); HEMOGLOBIN 11.7 GM/DL (11.6-15.3); LYMPH % 2.8 % (9.0-44.0); LYMPHOCYTE # 0.7 TH/MM3 (1.0-4.8); MEAN CELL VOLUME 91.1 FL (80.0-100.0); MEAN CORPUSCULAR HEMOGLOBIN 30.5 PG (27.0-34.0); MEAN CORPUSCULAR HGB CONC 33.5 % (32.0-36.0); MEAN PLATELET VOLUME 8.9 FL (7.0-11.0); MONO % 4.6 % (0.0-8.0); MONOCYTE # 1.1 TH/MM3 (0-0.9); NEUT % 92.4 % (16.0-70.0); PLATELET COUNT 334 TH/MM3 (150-450); RED BLOOD COUNT 3.82 MIL/MM3 (4.00-5.30); RED CELL DISTRIBUTION WIDTH 12.8 % (11.6-17.2); WHITE BLOOD COUNT 24.3 TH/MM3 (4.0-11.0)
--- NOTE | 2017-09-09 09:04 | HHI.PR ---
Subjective Remarks Patient reports cough is getting better she was able to sleep last night mild nausea, positive flatus breathing, "is a little better." Objective Vitals Vital Signs Date Time Temp Pulse Resp B/P (MAP) Pulse Ox O2 Delivery O2 Flow Rate FiO2 09/09/17 07:52 94 Nasal Cannula 2.00 09/09/17 07:41 Nasal Cannula 2.00 09/09/17 00:48 97.6 85 22 147/67 (93) 95 09/08/17 20:22 96.1 89 21 138/81 (100) 96 09/08/17 19:52 95 09/08/17 16:00 97.5 94 19 117/56 (76) 95 09/08/17 12:00 98.3 83 20 120/58 (78) 94 Result Diagram: 09/09/17 0552 09/09/17 0552 Other Results Laboratory Tests Test 09/07/17 15:30 09/07/17 16:10 09/08/17 04:10 09/09/17 05:52 White Blood Count 17.8 TH/MM3 21.2 TH/MM3 24.3 TH/MM3 Red Blood Count 3.87 MIL/MM3 3.90 MIL/MM3 3.82 MIL/MM3 Hemoglobin 12.2 GM/DL 11.7 GM/DL 11.7 GM/DL Hematocrit 34.8 % 35.5 % 34.8 % Mean Corpuscular Volume 89.8 FL 91.0 FL 91.1 FL Mean Corpuscular Hemoglobin 31.5 PG 30.0 PG 30.5 PG Mean Corpuscular Hemoglobin Concent 35.1 % 32.9 % 33.5 % Red Cell Distribution Width 12.7 % 13.0 % 12.8 % Platelet Count 337 TH/MM3 338 TH/MM3 334 TH/MM3 Mean Platelet Volume 8.1 FL 9.1 FL 8.9 FL Neutrophils (%) (Auto) 87.0 % 93.3 % 92.4 % Lymphocytes (%) (Auto) 5.1 % 2.2 % 2.8 % Monocytes (%) (Auto) 7.2 % 4.4 % 4.6 % Eosinophils (%) (Auto) 0.7 % 0.0 % 0.0 % Basophils (%) (Auto) 0.0 % 0.1 % 0.2 % Neutrophils # (Auto) 15.5 TH/MM3 19.8 TH/MM3 22.4 TH/MM3 Lymphocytes # (Auto) 0.9 TH/MM3 0.5 TH/MM3 0.7 TH/MM3 Monocytes # (Auto) 1.3 TH/MM3 0.9 TH/MM3 1.1 TH/MM3 Eosinophils # (Auto) 0.1 TH/MM3 0.0 TH/MM3 0.0 TH/MM3 Basophils # (Auto) 0.0 TH/MM3 0.0 TH/MM3 0.0 TH/MM3 CBC Comment DIFF FINAL DIFF FINAL DIFF FINAL Differential Comment Blood Urea Nitrogen 29 MG/DL 25 MG/DL 34 MG/DL Creatinine 1.44 MG/DL 1.28 MG/DL 1.07 MG/DL Random Glucose 102 MG/DL 296 MG/DL 281 MG/DL Total Protein 6.8 GM/DL 6.0 GM/DL Albumin 2.5 GM/DL Calcium Level 8.8 MG/DL 6.7 MG/DL 8.7 MG/DL Magnesium Level 2.1 MG/DL 2.1 MG/DL Alkaline Phosphatase 131 U/L Aspartate Amino Transf (AST/SGOT) 49 U/L Alanine Aminotransferase (ALT/SGPT) 65 U/L Total Bilirubin 0.5 MG/DL Sodium Level 135 MEQ/L 134 MEQ/L 136 MEQ/L Potassium Level 4.0 MEQ/L 4.2 MEQ/L 4.0 MEQ/L Chloride Level 100 MEQ/L 101 MEQ/L 103 MEQ/L Carbon Dioxide Level 25.0 MEQ/L 18.9 MEQ/L 21.2 MEQ/L Anion Gap 10 MEQ/L 14 MEQ/L 12 MEQ/L Estimat Glomerular Filtration Rate 36 ML/MIN 41 ML/MIN 51 ML/MIN Total Creatine Kinase 249 U/L Creatine Kinase MB 2.0 NG/ML Creatine Kinase MB % 0.8 % Lactic Acid Level 0.7 mmol/L Protein Corrected Calcium 7.2 MG/DL Imaging Last Impressions Chest X-Ray 09/07/17 0000 Signed Impressions: Service Date/Time: Thursday, September 07, 2017 15:44 - CONCLUSION: 1. Left basilar infiltrate. Treatment and followup to resolution. Arnol Cohen MD Objective Remarks GENERAL: This is a well-nourished, well-developed patient, in no apparent distress. SKIN: Erythematous raised maculopapular rash noted on back in anterior thighs- improving CARDIOVASCULAR: Regular rate and rhythm RESPIRATORY: diminished crackles LLL GASTROINTESTINAL: Abdomen soft, non-tender, nondistended. Normal active bowel sounds MUSCULOSKELETAL: Extremities without clubbing, cyanosis, or edema. NEURO: Alert & Oriented x4 to person, place, time, situation. Moves all ext x4 A/P Problem List: (1) PNA (pneumonia) ICD Codes: J18.9 - Pneumonia, unspecified organism Plan: Patient presented to PT PCPs office yesterday diagnosed with bilateral pneumonia and started on Levaquin. Had outpatient Chest x-ray (09/06/17) obtained and revealed patchy infiltrates at both lung bases particularly the left base rule out pneumonia. Patient took 1 dose of Levaquin yesterday and then today she developed swelling and pain as well as rash on her chest and swelling medially to her joints in the arms and legs. Patient also reports pain in her upper and lower extremity joints. Patient presents to the emergency department today due to medication reaction to Levaquin. Chest x-ray (09/07)revealed left basal infiltrate. Also distended appearance of bowel seen on CXR KUB reviewed and revealed Nonspecific bowel gas pattern with borderline air filled small bowel in the midabdomen. Findings may reflect developing adynamic ileus. patient reports mild nausea and positive flatus Encourage ambulation with assistance Patient started on Rocephin and azithromycin, patient now has a erythematous macular papular rash on back and upper thighs consistent with drug reaction () -DC Rocephin, Benadryl as needed for itching/rash Supplemental oxygen as needed DuoNeb every 6 hours while awake and as needed continue Solu medrol 60 mg Q6H add IS and accupella add Mucinex BID DVT prophylaxis with SCDs (2) Medication reaction ICD Codes: T88.7XXA - Unspecified adverse effect of drug or medicament, initial encounter Plan: Patient diagnosed with bilateral pneumonia and started on Levaquin. Patient took 1 dose of Levaquin yesterday and then today she developed swelling and pain as well as rash on her chest and swelling medially to her joints in the arms and legs. Patient also reports pain in her upper and lower extremity joints. Levaquin DC'd (09/07) (09/07)Patient started on Rocephin and azithromycin, patient now has a erythematous macular papular rash on back and upper thighs consistent with drug reaction (09/08) -DC Rocephin, Benadryl as needed for itching/rash 09/09 rash improving (3) Diabetes mellitus ICD Codes: E11.9 - Type 2 diabetes mellitus without complications Plan: Patient takes Tradjenta 5 mg PO daily, Novolog 8 units SQ TID and Tresiba 30 units QHS. Will hold home regimen while patient is in the hospital (09/07) Start Levemir 10 units SQ nightly Accu-Cheks before meals at bedtime with high-dose sliding scale insulin coverage Diabetic diet (09/08) patient's blood sugar running high 439 this morning 323 this afternoon will increase Levemir to 10 units twice daily continue to monitor with Accu- Cheks and sliding scale insulin coverage (4) HTN (hypertension) ICD Codes: I10 - Essential (primary) hypertension Plan: Continue patient's home amlodipine 10 mg p.o. daily and lisinopril 20 mg p.o. twice daily (5) Hyperlipidemia ICD Codes: E78.5 - Hyperlipidemia, unspecified Plan: Continue patient's home simvastatin 40 mg p.o. nightly (6) Depression ICD Codes: F32.9 - Major depressive disorder, single episode, unspecified Plan: Continue patient's home sertraline Assessment and Plan Patient examined. Assessment and plan formulated with Rossana Ramirez PA-C. I agree with the above. pneumonia. reactive airways. cont iv azithro. off levaquin and rocephin due to rash. cont solumedrol. nebs. mucomyst. check urine antigens and sputum cx. will wean o2 as tolerated. Problem Qualifiers (1) PNA (pneumonia): Qualified Codes: J18.1 - Lobar pneumonia, unspecified organism Rossana Ramirez Sep 09, 2017 09:04 Merrill Mar MD Sep 09, 2017 18:09
[2017-09-09] MEDS: ONDANSETRON HCL 4 MG/2 ML VIAL IV PUSH PRN ×2 (09:07→22:17)
[2017-09-09] MEDS: guaiFENesin E.R. 600 MG TAB PO SCH ×2 (11:09→20:12)
[2017-09-09] MEDS: RESP: ACETYLCYSTEINE 20% 30 ML NEB NEB SCH ×2 (16:49→21:57)
[2017-09-09] MEDS: PRAVASTATIN SOD 80 MG TAB PO SCH (20:12)
[2017-09-10] VITALS (9 sets, daily range): BP systolic 124–169; BP diastolic 56–83; PULSE 74–95; RESP 18–20; TEMP 97.3–98.1; O2SAT 91–96
[2017-09-10] MEDS: RESP: ALBUTEROL 2.5 MG/IPRATROPIUM 0.5 MG NEB (SCH) NEB ×4 (03:31→21:23)
[2017-09-10] MEDS: RESP: ACETYLCYSTEINE 20% 30 ML NEB NEB SCH ×4 (03:31→21:23)
[2017-09-10] MEDS: methylPREDNISolone SOD SUCC 125 MG/2 ML VIAL IV PUSH SCH (06:14)
[2017-09-10] MEDS: guaiFENesin E.R. 600 MG TAB PO SCH ×2 (08:06→20:18)
[2017-09-10] MEDS: SERTRALINE HCL 50 MG TAB PO SCH (08:06)
[2017-09-10] MEDS: LISINOPRIL 20 MG TAB PO SCH ×2 (08:06→20:19)
[2017-09-10] MEDS: SODIUM CHLORIDE 0.9% FLUSH 10 ML FLUSH IV FLUSH SCH ×2 (08:06→20:19)
[2017-09-10] MEDS: CLOPIDOGREL 75 MG TAB PO SCH (08:06)
[2017-09-10] MEDS: AZITHROMYCIN INJ 500 MG in SODIUM CHLOR 0.9% 250 ML INJ 250 ML IV SCH (08:06)
[2017-09-10] MEDS: INSULIN ASPART SUPPLEMENTAL SCALE SQ SCH ×4 (08:12→22:16)
[2017-09-10] MEDS: INSULIN DETEMIR 100 UNITS/ML VIAL SQ SCH ×2 (08:17→22:16)
[2017-09-10] MEDS: ONDANSETRON HCL 4 MG/2 ML VIAL IV PUSH PRN ×2 (09:29→16:41)
[2017-09-10] MEDS ORDERED: BISACODYL 10 MG SUPP RECTAL ONE (10:00)
[2017-09-10] MEDS ORDERED: MAGNESIUM HYDROXIDE SUSP 30 ML CUP PO ONE (10:00)
--- NOTE | 2017-09-10 10:06 | HHI.PR ---
Subjective Remarks Patient feels that SOB in improving cough is also better now patient having a dry nonproductive cough patient c/o N/V last night endorses flatus still no BM Objective Vitals Vital Signs Date Time Temp Pulse Resp B/P (MAP) Pulse Ox O2 Delivery O2 Flow Rate FiO2 09/10/17 08:00 98.0 95 20 169/70 (103) 92 09/10/17 07:26 Room Air 09/10/17 04:07 96 09/10/17 03:31 91 Nasal Cannula 2.00 09/09/17 23:40 98.3 89 17 112/53 (72) 94 09/09/17 23:04 Nasal Cannula 2.00 09/09/17 21:59 94 21 09/09/17 19:45 98.0 90 18 127/79 (95) 92 09/09/17 16:00 97.8 85 20 124/58 (80) 93 09/09/17 12:00 97.8 89 20 106/61 (76) 93 Result Diagram: 09/09/17 0552 09/09/17 0552 Other Results Laboratory Tests Test 09/07/17 15:30 09/07/17 16:10 09/08/17 04:10 09/09/17 05:52 White Blood Count 17.8 TH/MM3 21.2 TH/MM3 24.3 TH/MM3 Red Blood Count 3.87 MIL/MM3 3.90 MIL/MM3 3.82 MIL/MM3 Hemoglobin 12.2 GM/DL 11.7 GM/DL 11.7 GM/DL Hematocrit 34.8 % 35.5 % 34.8 % Mean Corpuscular Volume 89.8 FL 91.0 FL 91.1 FL Mean Corpuscular Hemoglobin 31.5 PG 30.0 PG 30.5 PG Mean Corpuscular Hemoglobin Concent 35.1 % 32.9 % 33.5 % Red Cell Distribution Width 12.7 % 13.0 % 12.8 % Platelet Count 337 TH/MM3 338 TH/MM3 334 TH/MM3 Mean Platelet Volume 8.1 FL 9.1 FL 8.9 FL Neutrophils (%) (Auto) 87.0 % 93.3 % 92.4 % Lymphocytes (%) (Auto) 5.1 % 2.2 % 2.8 % Monocytes (%) (Auto) 7.2 % 4.4 % 4.6 % Eosinophils (%) (Auto) 0.7 % 0.0 % 0.0 % Basophils (%) (Auto) 0.0 % 0.1 % 0.2 % Neutrophils # (Auto) 15.5 TH/MM3 19.8 TH/MM3 22.4 TH/MM3 Lymphocytes # (Auto) 0.9 TH/MM3 0.5 TH/MM3 0.7 TH/MM3 Monocytes # (Auto) 1.3 TH/MM3 0.9 TH/MM3 1.1 TH/MM3 Eosinophils # (Auto) 0.1 TH/MM3 0.0 TH/MM3 0.0 TH/MM3 Basophils # (Auto) 0.0 TH/MM3 0.0 TH/MM3 0.0 TH/MM3 CBC Comment DIFF FINAL DIFF FINAL DIFF FINAL Differential Comment Blood Urea Nitrogen 29 MG/DL 25 MG/DL 34 MG/DL Creatinine 1.44 MG/DL 1.28 MG/DL 1.07 MG/DL Random Glucose 102 MG/DL 296 MG/DL 281 MG/DL Total Protein 6.8 GM/DL 6.0 GM/DL Albumin 2.5 GM/DL Calcium Level 8.8 MG/DL 6.7 MG/DL 8.7 MG/DL Magnesium Level 2.1 MG/DL 2.1 MG/DL Alkaline Phosphatase 131 U/L Aspartate Amino Transf (AST/SGOT) 49 U/L Alanine Aminotransferase (ALT/SGPT) 65 U/L Total Bilirubin 0.5 MG/DL Sodium Level 135 MEQ/L 134 MEQ/L 136 MEQ/L Potassium Level 4.0 MEQ/L 4.2 MEQ/L 4.0 MEQ/L Chloride Level 100 MEQ/L 101 MEQ/L 103 MEQ/L Carbon Dioxide Level 25.0 MEQ/L 18.9 MEQ/L 21.2 MEQ/L Anion Gap 10 MEQ/L 14 MEQ/L 12 MEQ/L Estimat Glomerular Filtration Rate 36 ML/MIN 41 ML/MIN 51 ML/MIN Total Creatine Kinase 249 U/L Creatine Kinase MB 2.0 NG/ML Creatine Kinase MB % 0.8 % Lactic Acid Level 0.7 mmol/L Protein Corrected Calcium 7.2 MG/DL Imaging Last Impressions Chest X-Ray 09/07/17 0000 Signed Impressions: Service Date/Time: Thursday, September 07, 2017 15:44 - CONCLUSION: 1. Left basilar infiltrate. Treatment and followup to resolution. Arnol Cohen MD Objective Remarks GENERAL: This is a well-nourished, well-developed patient, in no apparent distress. SKIN: Erythematous raised maculopapular rash noted on back in anterior thighs- resolved CARDIOVASCULAR: Regular rate and rhythm RESPIRATORY: better air movement than yesterday continues to have coarse crackles LLL GASTROINTESTINAL: Abdomen soft, non-tender, nondistended. Normal active bowel sounds MUSCULOSKELETAL: Extremities without clubbing, cyanosis, or edema. NEURO: Alert & Oriented x4 to person, place, time, situation. Moves all ext x4 A/P Problem List: (1) PNA (pneumonia) ICD Codes: J18.9 - Pneumonia, unspecified organism Plan: PNA (pneumonia) Patient presented to PT PCPs office yesterday diagnosed with bilateral pneumonia and started on Levaquin. Had outpatient Chest x-ray (09/06/17) obtained and revealed patchy infiltrates at both lung bases particularly the left base rule out pneumonia. Patient took 1 dose of Levaquin yesterday and then today she developed swelling and pain as well as rash on her chest and swelling medially to her joints in the arms and legs. Patient also reports pain in her upper and lower extremity joints. Patient presents to the emergency department today due to medication reaction to Levaquin. Chest x-ray (09/07)revealed left basal infiltrate. Also distended appearance of bowel seen on CXR Urine Legionella antigen negative Urine Streptococcus pneumoniae negative Patient started on Rocephin and azithromycin, patient now has a erythematous macular papular rash on back and upper thighs consistent with drug reaction () -DC Rocephin, Benadryl as needed for itching/rash Supplemental oxygen as needed DuoNeb and Mucomyst neb every 6 hours while awake and as needed DC Solu medrol 60 mg Q6H -> Prednisone 30 BID add IS and accupella add Mucinex BID DVT prophylaxis with SCDs Medication reaction Patient diagnosed with bilateral pneumonia and started on Levaquin. Patient took 1 dose of Levaquin yesterday and then today she developed swelling and pain as well as rash on her chest and swelling medially to her joints in the arms and legs. Patient also reports pain in her upper and lower extremity joints. Levaquin DC'd (09/07) (09/07)Patient started on Rocephin and azithromycin, patient now has a erythematous macular papular rash on back and upper thighs consistent with drug reaction (09/08) -DC Rocephin, Benadryl as needed for itching/rash 09/09 rash improving Early Ileus KUB 09/08 reviewed and revealed Nonspecific bowel gas pattern with borderline air filled small bowel in the midabdomen. Findings may reflect developing adynamic ileus. patient reports mild nausea and positive flatus Encourage ambulation with assistance MOM and Supp 09/10 Diabetes mellitus Patient takes Tradjenta 5 mg PO daily, Novolog 8 units SQ TID and Tresiba 30 units QHS. Will hold home regimen while patient is in the hospital (09/07) Start Levemir 10 units SQ nightly Accu-Cheks before meals at bedtime with high-dose sliding scale insulin coverage Diabetic diet (09/08) patient's blood sugar running high 439 this morning 323 this afternoon will increase Levemir to 20 units twice daily continue to monitor with Accu- Cheks and sliding scale insulin coverage (09/10) Solu medrol DC's prednisone started monitor blood glucose decrease Levemir to 15 units BID with change in steroids HTN (hypertension) Continue patient's home amlodipine 10 mg p.o. daily and lisinopril 20 mg p.o. twice daily Hyperlipidemia Continue patient's home simvastatin 40 mg p.o. nightly Depression Continue patient's home sertraline (2) Medication reaction ICD Codes: T88.7XXA - Unspecified adverse effect of drug or medicament, initial encounter (3) Diabetes mellitus ICD Codes: E11.9 - Type 2 diabetes mellitus without complications (4) HTN (hypertension) ICD Codes: I10 - Essential (primary) hypertension (5) Hyperlipidemia ICD Codes: E78.5 - Hyperlipidemia, unspecified (6) Depression ICD Codes: F32.9 - Major depressive disorder, single episode, unspecified Assessment and Plan Patient examined. Assessment and plan formulated with Rossana Ramirez PA-C. I agree with the above. pneumonia. reactive airways. cont iv azithro. off levaquin and rocephin due to rash. cont solumedrol. nebs. mucomyst. will wean o2 as tolerated. laxatives slowly improving Problem Qualifiers (1) PNA (pneumonia): Qualified Codes: J18.1 - Lobar pneumonia, unspecified organism Rossana Ramirez September 10, 2017 10:06 Merrill Mar MD September 10, 2017 18:31
[2017-09-10] MEDS ORDERED: PANTOPRAZOLE SOD 40 MG DELAYED RELEASE TAB PO ONE (10:30)
[2017-09-10] MEDS ORDERED: GLUCAGON 1 MG/ML VIAL OTHER PRN (11:15)
[2017-09-10] MEDS ORDERED: DEXTROSE 50% IN WATER 50 ML VIAL(D50) IV PUSH PRN (11:15)
[2017-09-10] MEDS ORDERED: LACTULOSE SYRUP 20 GM/30 ML CUP PO ONE (18:00)
[2017-09-10] MEDS: predniSONE 20 MG TAB PO SCH (20:18)
[2017-09-10] MEDS: PRAVASTATIN SOD 80 MG TAB PO SCH (20:18)
[2017-09-11] MEDS: RESP: ALBUTEROL 2.5 MG/IPRATROPIUM 0.5 MG NEB (SCH) NEB ×4 (03:41→20:26)
[2017-09-11] MEDS: RESP: ACETYLCYSTEINE 20% 30 ML NEB NEB SCH ×4 (03:41→20:26)
[2017-09-11] MEDS: ONDANSETRON HCL 4 MG/2 ML VIAL IV PUSH PRN (04:30)
[2017-09-11 08:00] VITALS: BP 130/61; PULSE 70; RESP 20; TEMP 97.9; O2SAT 92
[2017-09-11] MEDS: PANTOPRAZOLE SOD 40 MG DELAYED RELEASE TAB PO SCH (08:31)
[2017-09-11] MEDS: SERTRALINE HCL 50 MG TAB PO SCH (08:31)
[2017-09-11] MEDS: LISINOPRIL 20 MG TAB PO SCH ×2 (08:32→21:05)
[2017-09-11] MEDS: guaiFENesin E.R. 600 MG TAB PO SCH ×2 (08:32→21:05)
[2017-09-11] MEDS: CLOPIDOGREL 75 MG TAB PO SCH (08:32)
[2017-09-11] MEDS: predniSONE 20 MG TAB PO SCH ×2 (08:32→21:05)
[2017-09-11] MEDS: INSULIN ASPART SUPPLEMENTAL SCALE SQ SCH ×4 (08:33→21:06)
[2017-09-11] MEDS: INSULIN DETEMIR 100 UNITS/ML VIAL SQ SCH ×2 (08:33→21:06)
[2017-09-11] MEDS: AZITHROMYCIN INJ 500 MG in SODIUM CHLOR 0.9% 250 ML INJ 250 ML IV SCH (09:00)
[2017-09-11] MEDS: SODIUM CHLORIDE 0.9% FLUSH 10 ML FLUSH IV FLUSH SCH ×2 (09:00→21:12)
[2017-09-11 09:44] VITALS: O2SAT 91
--- NOTE | 2017-09-11 11:26 | HHI.PR ---
Subjective Remarks Pt overall feeling better but still not bringing up much sputum Afebrile Some flatus but no BM Abdomen feels less distended Objective Vitals Vital Signs Date Time Temp Pulse Resp B/P (MAP) Pulse Ox O2 Delivery O2 Flow Rate FiO2 09/11/17 09:44 91 21 09/11/17 08:00 97.9 70 20 130/61 (84) 92 09/10/17 23:53 98.1 86 18 143/56 (85) 95 09/10/17 21:25 95 Nasal Cannula 2.00 09/10/17 19:39 97.8 86 18 143/74 (97) 92 09/10/17 19:00 Room Air 09/10/17 16:00 97.8 74 20 143/64 (90) 92 09/10/17 12:00 97.3 91 20 124/83 (97) 94 Result Diagram: 09/09/17 0552 09/09/17 0552 Imaging Last Impressions Chest X-Ray 09/07/17 0000 Signed Impressions: Service Date/Time: Thursday, September 07, 2017 15:44 - CONCLUSION: 1. Left basilar infiltrate. Treatment and followup to resolution. Arnol Cohen MD Objective Remarks GENERAL: This is a well-nourished, well-developed patient, in no apparent distress. SKIN: Erythematous raised maculopapular rash noted on back in anterior thighs- resolved CARDIO: Regular rate and rhythm RESP: better air movement than yesterday continues to have coarse crackles bilateral bases ABD: Abdomen soft, non-tender, nondistended. Normal active bowel sounds EXT: Extremities without clubbing, cyanosis, or edema. NEURO: Alert & Oriented x4 to person, place, time, situation. Moves all ext x4 A/P Problem List: (1) PNA (pneumonia) ICD Codes: J18.9 - Pneumonia, unspecified organism Plan: PNA (pneumonia) - Patient presented to PT PCPs office on 09/06 diagnosed with bilateral pneumonia and started on Levaquin. Had outpatient Chest x-ray (09/06/17) obtained and revealed patchy infiltrates at both lung bases particularly the left base rule out pneumonia. Patient took 1 dose of Levaquin on 09/06 and then on 09/07 she developed swelling and pain as well as rash on her chest and swelling medially to her joints in the arms and legs. Patient also reports pain in her upper and lower extremity joints. Patient presents to the emergency department today due to medication reaction to Levaquin. - Chest x-ray (09/07) revealed left basal infiltrate. Also distended appearance of bowel seen on CXR - Urine Legionella antigen negative - Urine Streptococcus pneumoniae negative - Patient started on Rocephin and azithromycin on 09/07, but developed an erythematous macular papular rash on back and upper thighs consistent with drug reaction (09/08) - DC Rocephin on 09/08, Benadryl as needed for itching/rash - Azithromycin continued - Supplemental oxygen as needed - DuoNeb and Mucomyst neb every 6 hours while awake and as needed - Solu Medrol 60 mg Q6H weaned to Prednisone 20mg BID on 09/10 - IS and acapella - Cont. Mucinex BID - Wean supplemental O2 as tolerated DVT prophylaxis with SCDs Medication reaction - Patient diagnosed with bilateral pneumonia and started on Levaquin on 09/06. Patient took 1 dose of Levaquin and developed swelling and pain as well as rash on her chest and swelling medially to her joints in the arms and legs. Patient also reports pain in her upper and lower extremity joints. - Levaquin DC'd (09/07) - On 09/07 patient was started on Rocephin and azithromycin, but developed an erythematous macular papular rash on back and upper thighs consistent with drug reaction (09/08) - Rocephin DC on 09/08, Benadryl as needed for itching/rash - Rash improved/resolved Early Ileus - KUB 09/08 reviewed and revealed nonspecific bowel gas pattern with borderline air filled small bowel in the midabdomen. Findings may reflect developing adynamic ileus. - Patient reports mild nausea and positive flatus - Encourage ambulation with assistance - MOM and Supp 09/10, no BM as of 09/11 but less abd distension Diabetes mellitus - Patient takes Tradjenta 5 mg PO daily, Novolog 8 units SQ TID and Tresiba 30 units QHS. Will hold home regimen while patient is in the hospital - On 09/07 Levemir 10 units SQ nightly started - Accu-Cheks before meals at bedtime with high-dose sliding scale insulin coverage - Diabetic diet - On 09/08 patient's blood sugar running high 439 this morning 323, Levemir increased to 20 units twice daily - On 09/10 Solu medrol DC'd and prednisone started, Levemir decreased to 15 units BID with change in steroids - BS stable, cont. accu checks HTN (hypertension) - Continue patient's home amlodipine 10 mg p.o. daily and lisinopril 20 mg p.o. twice daily Hyperlipidemia - Continue patient's home simvastatin 40 mg p.o. nightly Depression - Continue patient's home sertraline (2) Medication reaction ICD Codes: T88.7XXA - Unspecified adverse effect of drug or medicament, initial encounter (3) Diabetes mellitus ICD Codes: E11.9 - Type 2 diabetes mellitus without complications (4) HTN (hypertension) ICD Codes: I10 - Essential (primary) hypertension (5) Hyperlipidemia ICD Codes: E78.5 - Hyperlipidemia, unspecified (6) Depression ICD Codes: F32.9 - Major depressive disorder, single episode, unspecified Assessment and Plan Patient examined. Assessment and plan formulated with Rossana Ramirez PA-C. I agree with the above. pneumonia. reactive airways. cont iv azithro. off levaquin and rocephin due to rash. cont steroid taper and nebs will wean o2 as tolerated. laxatives add reglan for persistent nausea vomited meals kub in AM to reassess ileus. Problem Qualifiers (1) PNA (pneumonia): Qualified Codes: J18.1 - Lobar pneumonia, unspecified organism Nery Rodriguez September 11, 2017 11:26 Merrill Mar MD September 11, 2017 13:15
[2017-09-11 12:00] VITALS: BP 124/60; PULSE 68; RESP 20; TEMP 97.8; O2SAT 91
[2017-09-11] MEDS: METOCLOPRAMIDE HCL 10 MG/2 ML VIAL IV PUSH SCH ×2 (14:51→21:06)
[2017-09-11 16:00] VITALS: BP 118/57; PULSE 77; RESP 20; TEMP 97.7; O2SAT 92
[2017-09-11 20:00] VITALS: BP 129/69; PULSE 80; RESP 18; TEMP 97.7; O2SAT 95
[2017-09-11 20:28] VITALS: O2SAT 98
[2017-09-11] MEDS: PRAVASTATIN SOD 80 MG TAB PO SCH (21:05)
[2017-09-12] VITALS (7 sets, daily range): BP systolic 122–182; BP diastolic 59–73; PULSE 71–87; RESP 17–20; TEMP 97.6–98.3; O2SAT 93–96
[2017-09-12] MEDS: RESP: ALBUTEROL 2.5 MG/IPRATROPIUM 0.5 MG NEB (SCH) NEB ×4 (04:02→20:23)
[2017-09-12] MEDS: RESP: ACETYLCYSTEINE 20% 30 ML NEB NEB SCH ×3 (04:02→20:23)
[2017-09-12] MEDS: METOCLOPRAMIDE HCL 10 MG/2 ML VIAL IV PUSH SCH ×3 (05:56→21:11)
--- NOTE | 2017-09-12 06:50 | RADRPT ---
EXAM DATE/TIME: 09/12/2017 05:57 [facility] COMPARISON: ABDOMEN KUB ONLY, September 08, 2017, 15:38. INDICATIONS : Abdominal distention and discomfort, evaluate for ileus MEDICAL HISTORY : Chronic obstructive pulmonary disease. Hypertension SURGICAL HISTORY : graft right iliac ENCOUNTER: Subsequent ACUITY: 4 - 6 days PAIN SCORE: 1/10 LOCATION: Bilateral abdomen FINDINGS: Supine view of the abdomen was performed. The abdominal bowel gas pattern is normal. No abnormal ma sses, calcifications, or organomegaly is seen. The osseous structures are unremarkable. Bilateral il iac stents are present CONCLUSION: Resolving hypodynamic ileus. Nonobstructive bowel gas pattern. Teo Lopez MD on September 12, 2017 at 6:48 Board Certified Radiologist. This report was verified electronically.
[2017-09-12] MEDS: INSULIN ASPART SUPPLEMENTAL SCALE SQ SCH ×4 (08:42→20:53)
[2017-09-12] MEDS: INSULIN DETEMIR 100 UNITS/ML VIAL SQ SCH ×2 (08:43→20:54)
[2017-09-12] MEDS: SERTRALINE HCL 50 MG TAB PO SCH (08:43)
[2017-09-12] MEDS: AZITHROMYCIN INJ 500 MG in SODIUM CHLOR 0.9% 250 ML INJ 250 ML IV SCH (08:43)
[2017-09-12] MEDS: guaiFENesin E.R. 600 MG TAB PO SCH ×2 (08:44→20:54)
[2017-09-12] MEDS: predniSONE 20 MG TAB PO SCH ×2 (08:44→20:54)
[2017-09-12] MEDS: PANTOPRAZOLE SOD 40 MG DELAYED RELEASE TAB PO SCH (08:44)
[2017-09-12] MEDS: LISINOPRIL 20 MG TAB PO SCH ×2 (08:44→20:54)
[2017-09-12] MEDS: CLOPIDOGREL 75 MG TAB PO SCH (08:44)
[2017-09-12] MEDS: SODIUM CHLORIDE 0.9% FLUSH 10 ML FLUSH IV FLUSH SCH ×2 (08:45→21:08)
[2017-09-12] MEDS ORDERED: MAGNESIUM CITRATE SOLN 300 ML BTL PO ONE (12:00)
--- NOTE | 2017-09-12 12:36 | HHI.PR ---
Subjective Remarks breathing ok no bm yet less nausea and no vomiting Objective Vitals heart reg lung course rhonci. some clears with cough abd bs. nt ext no edema Vital Signs Date Time Temp Pulse Resp B/P (MAP) Pulse Ox O2 Delivery O2 Flow Rate FiO2 09/12/17 09:32 95 21 09/12/17 08:00 97.6 78 20 145/70 (95) 95 09/12/17 00:01 97.6 71 18 130/62 (84) 93 09/11/17 21:10 Room Air 09/11/17 20:28 98 09/11/17 20:00 97.7 80 18 129/69 (89) 95 09/11/17 16:00 97.7 77 20 118/57 (77) 92 Result Diagram: 09/09/17 0552 09/09/17 0552 Imaging Last Impressions Chest X-Ray 09/07/17 0000 Signed Impressions: Service Date/Time: Saturday, September 07, 2017 15:44 - CONCLUSION: 1. Left basilar infiltrate. Treatment and followup to resolution. Arnol Cohen MD A/P Problem List: (1) PNA (pneumonia) ICD Codes: J18.9 - Pneumonia, unspecified organism Status: Acute Plan: PNA (pneumonia) - Patient presented to PT PCPs office on 09/06 diagnosed with bilateral pneumonia and started on Levaquin. Had outpatient Chest x-ray (09/06/17) obtained and revealed patchy infiltrates at both lung bases particularly the left base rule out pneumonia. Patient took 1 dose of Levaquin on 09/06 and then on 09/07 she developed swelling and pain as well as rash on her chest and swelling medially to her joints in the arms and legs. Patient also reports pain in her upper and lower extremity joints. Patient presents to the emergency department today due to medication reaction to Levaquin. - Chest x-ray (09/07) revealed left basal infiltrate. Also distended appearance of bowel seen on CXR - Urine Legionella antigen negative - Urine Streptococcus pneumoniae negative - Patient started on Rocephin and azithromycin on 09/07, but developed an erythematous macular papular rash on back and upper thighs consistent with drug reaction (09/08) - DC Rocephin on 09/08, Benadryl as needed for itching/rash - Azithromycin continued - Supplemental oxygen as needed - DuoNeb and Mucomyst neb every 6 hours while awake and as needed - Solu Medrol 60 mg Q6H weaned to Prednisone 20mg BID on 09/10 - IS and acapella - Cont. Mucinex BID - Wean supplemental O2 as tolerated -DVT prophylaxis with SCDs Medication reaction - Patient diagnosed with bilateral pneumonia and started on Levaquin on 09/06. Patient took 1 dose of Levaquin and developed swelling and pain as well as rash on her chest and swelling medially to her joints in the arms and legs. Patient also reports pain in her upper and lower extremity joints. - Levaquin DC'd (09/07) - On 09/07 patient was started on Rocephin and azithromycin, but developed an erythematous macular papular rash on back and upper thighs consistent with drug reaction (09/08) - Rocephin DC on 09/08, Benadryl as needed for itching/rash - Rash improved/resolved Early Ileus - KUB 09/08 reviewed and revealed nonspecific bowel gas pattern with borderline air filled small bowel in the midabdomen. Findings may reflect developing adynamic ileus. - Patient reports mild nausea and positive flatus - Encourage ambulation with assistance - MOM and Supp 09/10, reglan added on 09/11. still no bm. add mag citrate will plan to d/c later today if we can get her bowels moving. Diabetes mellitus - Patient takes Tradjenta 5 mg PO daily, Novolog 8 units SQ TID and Tresiba 30 units QHS. Will hold home regimen while patient is in the hospital - On 09/07 Levemir 10 units SQ nightly started - Accu-Cheks before meals at bedtime with high-dose sliding scale insulin coverage - Diabetic diet - On 09/08 patient's blood sugar running high 439 this morning 323, Levemir increased to 20 units twice daily - On 09/10 Solu medrol DC'd and prednisone started, Levemir decreased to 15 units BID with change in steroids - BS stable, cont. accu checks HTN (hypertension) - Continue patient's home amlodipine 10 mg p.o. daily and lisinopril 20 mg p.o. twice daily Hyperlipidemia - Continue patient's home simvastatin 40 mg p.o. nightly Depression - Continue patient's home sertraline (2) Medication reaction ICD Codes: T88.7XXA - Unspecified adverse effect of drug or medicament, initial encounter Status: Acute (3) Diabetes mellitus ICD Codes: E11.9 - Type 2 diabetes mellitus without complications Status: Chronic (4) HTN (hypertension) ICD Codes: I10 - Essential (primary) hypertension (5) Hyperlipidemia ICD Codes: E78.5 - Hyperlipidemia, unspecified Status: Chronic (6) Depression ICD Codes: F32.9 - Major depressive disorder, single episode, unspecified Problem Qualifiers (1) PNA (pneumonia): Qualified Codes: J18.1 - Lobar pneumonia, unspecified organism Merrill Mar MD September 12, 2017 12:36
[2017-09-12] MEDS: PRAVASTATIN SOD 80 MG TAB PO SCH (20:54)
[2017-09-13 00:01] VITALS: BP 142/67; PULSE 69; RESP 18; TEMP 97.7; O2SAT 95
[2017-09-13] MEDS: RESP: ACETYLCYSTEINE 20% 30 ML NEB NEB SCH (03:54)
[2017-09-13] MEDS: RESP: ALBUTEROL 2.5 MG/IPRATROPIUM 0.5 MG NEB (SCH) NEB (03:54)
[2017-09-13 04:00] VITALS: BP 144/79; PULSE 71; RESP 18; TEMP 98.2; O2SAT 95
[2017-09-13] MEDS: METOCLOPRAMIDE HCL 10 MG/2 ML VIAL IV PUSH SCH (06:10)
[2017-09-13 08:00] VITALS: BP 149/70; PULSE 67; RESP 14; TEMP 97.5; O2SAT 94
[2017-09-13] MEDS: INSULIN ASPART SUPPLEMENTAL SCALE SQ SCH ×2 (08:00→12:33)
[2017-09-13] MEDS: AZITHROMYCIN INJ 500 MG in SODIUM CHLOR 0.9% 250 ML INJ 250 ML IV SCH (08:31)
[2017-09-13] MEDS: INSULIN DETEMIR 100 UNITS/ML VIAL SQ SCH (08:32)
[2017-09-13 08:33] VITALS: O2SAT 96
[2017-09-13] MEDS: PANTOPRAZOLE SOD 40 MG DELAYED RELEASE TAB PO SCH (08:33)
[2017-09-13] MEDS: LISINOPRIL 20 MG TAB PO SCH (08:33)
[2017-09-13] MEDS: SODIUM CHLORIDE 0.9% FLUSH 10 ML FLUSH IV FLUSH SCH (08:33)
[2017-09-13] MEDS: CLOPIDOGREL 75 MG TAB PO SCH (08:33)
[2017-09-13] MEDS: SERTRALINE HCL 50 MG TAB PO SCH (08:33)
[2017-09-13] MEDS: predniSONE 20 MG TAB PO SCH (08:33)
[2017-09-13] MEDS: guaiFENesin E.R. 600 MG TAB PO SCH (08:34)
[2017-09-13] MEDS ORDERED: AZIT500T2 PO (09:11)
[2017-09-13] MEDS ORDERED: IPRA0.02 NEB (09:14)
[2017-09-13] MEDS ORDERED: NEBULIZER/ADULT1 KIT (09:14)
[2017-09-13] MEDS ORDERED: ALBU0.08 NEB (09:14)
--- NOTE | 2017-09-13 09:15 | HHI.DCPOC ---
Discharge Care Plan Diagnosis: (1) Acute bronchitis, viral (2) Depression (3) HTN (hypertension) (4) MAGALY (acute kidney injury) (5) Diabetes mellitus (6) Hyperlipidemia (7) Medication reaction (8) PNA (pneumonia) Goals to Promote Your Health * To prevent worsening of your condition and complications * To maintain your health at the optimal level Directions to Meet Your Goals Take your medications as prescribed Follow your dietary instruction Follow activity as directed Keep your appointments as scheduled Take your immunizations and boosters as scheduled If your symptoms worsen call your PCP, if no PCP go to Urgent Care Center or Emergency Room Smoking is Dangerous to Your Health. Avoid second hand smoke Call the 24-hour hour crisis hotline for domestic abuse at Nery Rodriguez September 13, 2017 09:15
--- NOTE | 2017-09-13 09:19 | HHI.DS ---
Discharge Summary Admission Date Sep 07, 2017 at 17:12 Discharge Date: September 13, 2017 Admitting Diagnosis Pneumonia, medication reaction (1) PNA (pneumonia) Diagnosis: Principal ICD Codes: J18.9 - Pneumonia, unspecified organism Status: Acute (2) Medication reaction Diagnosis: Secondary ICD Codes: T88.7XXA - Unspecified adverse effect of drug or medicament, initial encounter Status: Acute (3) Diabetes mellitus Diagnosis: Secondary ICD Codes: E11.9 - Type 2 diabetes mellitus without complications Status: Chronic (4) HTN (hypertension) Diagnosis: Secondary ICD Codes: I10 - Essential (primary) hypertension (5) Hyperlipidemia Diagnosis: Secondary ICD Codes: E78.5 - Hyperlipidemia, unspecified Status: Chronic (6) Depression Diagnosis: Secondary ICD Codes: F32.9 - Major depressive disorder, single episode, unspecified Brief History This is a 67-year-old female patient with past medical history which includes depression, chronic kidney disease stage III, diabetes mellitus, hypertension, hyperlipidemia, current tobacco use and PAD status post stent bilateral external iliac arteries. Patient was seen yesterday at her outpatient PCP Dr. Sanon office with complaints of generalized malaise 1 week rhinorrhea productive cough and congestion with mild fever 1 week. Prior to feeling unwell patient traveled to visit her granddaughter in [place]. Chest x-ray () obtained and revealed patchy infiltrates at both lung bases particularly the left base rule out pneumonia. Patient diagnosed with bilateral pneumonia and started on Levaquin. Patient took 1 dose of Levaquin yesterday and then today she developed a rash on her chest and swelling of her bilateral elbows and knees. Patient also reports pain in her upper and lower extremity joints. Patient denies any throat swelling, SOB or difficult swallowing. Patient denies chest pain or sick contacts. Chest x-ray (09/07)revealed left basal infiltrate. Also distended appearance of bowel seen on CXR Patient reports last BM 3 days again. Patient reports some time she will go 3- 4 days between BMs and sometime she has 3-4 BMs in a day. Patient denies taking narcotic medication or laxatives. CBC/BMP: 09/09/17 0552 09/09/17 0552 Imaging Last Impressions Abdomen X-Ray 09/12/17 0600 Signed Impressions: Service Date/Time: September 05:57 - CONCLUSION: Resolving hypodynamic ileus. Nonobstructive bowel gas pattern. Teo Lopez MD Chest X-Ray 09/08/17 0800 Signed Impressions: Service Date/Time: Friday, September 08, 2017 09:36 - CONCLUSION: Left basilar airspace disease and small bilateral effusions. Anshul Bhatt MD PE at Discharge General: NAD, AAOx3 Chest: Coarse breath sounds that improve with cough Cardiac: regular Abd: +BS, soft ND/NT Ext: No edema Hospital Course PNA (pneumonia) - Patient presented to PT PCPs office on 09/06 diagnosed with bilateral pneumonia and started on Levaquin. Had outpatient Chest x-ray (09/06/17) obtained and revealed patchy infiltrates at both lung bases particularly the left base rule out pneumonia. Patient took 1 dose of Levaquin on 09/06 and then on 09/07 she developed swelling and pain as well as rash on her chest and swelling medially to her joints in the arms and legs. Patient also reports pain in her upper and lower extremity joints. Patient presents to the emergency department today due to medication reaction to Levaquin. - Chest x-ray (09/07) revealed left basal infiltrate. Also distended appearance of bowel seen on CXR - Urine Legionella antigen negative - Urine Streptococcus pneumoniae negative - Patient started on Rocephin and azithromycin on 09/07, but developed an erythematous macular papular rash on back and upper thighs consistent with drug reaction (09/08) - DC Rocephin on 09/08, Benadryl as needed for itching/rash - Azithromycin continued - Supplemental oxygen as needed - DuoNeb and Mucomyst neb every 6 hours while awake and as needed - Solu Medrol 60 mg Q6H weaned to Prednisone 20mg BID on 09/10 - IS and acapella - Cont. Mucinex BID - Complete 3 more days of Azithromycin upon discharge - Cont. Duonebs Q4-6H WA for next 4 days, then can be used as needed after that - Followup with PCP in 1 week. Medication reaction - Patient diagnosed with bilateral pneumonia and started on Levaquin on 09/06. Patient took 1 dose of Levaquin and developed swelling and pain as well as rash on her chest and swelling medially to her joints in the arms and legs. Patient also reports pain in her upper and lower extremity joints. - Levaquin DC'd (09/07) - On 09/07 patient was started on Rocephin and azithromycin, but developed an erythematous macular papular rash on back and upper thighs consistent with drug reaction (09/08) - Rocephin DC on 09/08, Benadryl as needed for itching/rash - Rash improved/resolved Early Ileus - KUB 09/08 reviewed and revealed nonspecific bowel gas pattern with borderline air filled small bowel in the midabdomen. Findings may reflect developing adynamic ileus. - Patient reports mild nausea and positive flatus - Encourage ambulation with assistance - MOM and Supp 09/10, - Reglan added on 09/11. Mag citrate given on 09/12 and pt moved her bowels 3 times Diabetes mellitus - Patient takes Tradjenta 5 mg PO daily, Novolog 8 units SQ TID and Tresiba 30 units QHS. Will hold home regimen while patient is in the hospital - On 09/07 Levemir 10 units SQ nightly started - Accu-Cheks before meals at bedtime with high-dose sliding scale insulin coverage - Diabetic diet - On 09/08 patient's blood sugar running high 439 this morning 323, Levemir increased to 20 units twice daily - On 09/10 Solu medrol DC'd and prednisone started, Levemir decreased to 15 units BID with change in steroids - Cont. home regimen upon discharge HTN (hypertension) - Continue patient's home amlodipine 10 mg p.o. daily and lisinopril 20 mg p.o. twice daily Hyperlipidemia - Continue patient's home simvastatin 40 mg p.o. nightly Depression - Continue patient's home sertraline Pt Condition on Discharge: Stable Discharge Disposition: Discharge Home Discharge Instructions DIET: Follow Instructions for: Diabetic Diet Activities you can perform: Regular-No Restrictions Follow up Referrals: PCP Follow-up - [address] Cherri Sanon New Medications: Albuterol Neb (Albuterol Neb) 2.5 Mg/3 Ml Neb 2.5 MG NEB Q4HR NEB for Breathing Treatment, #60 NEBULE 0 Refills While awake Azithromycin (Azithromycin) 500 Mg Tab 500 MG PO DAILY for Infection, #3 TAB 0 Refills Ipratropium Neb (Ipratropium Neb) 0.5 Mg/2.5 Ml Amp 0.5 MG NEB Q4HR NEB for Breathing Treatment for 30 Days, #1 BOX 0 Refills Nebulizer/Adult Mask (Nebulizer/Adult Mask) 1 Kit Kit KIT .XX DIRECTED for Breathing Treatment, #1 0 Refills Continued Medications: Albuterol 8.5 GM Inh (Proair Hfa 8.5 GM Inh) 90 Mcg/Act Aer 2 PUFF INH Q6H PRN for SHORTNESS OF BREATH, #1 INHALER 0 Refills 108 mcg/actuation Amlodipine (Amlodipine) 10 Mg Tab 10 MG PO DAILY for Blood Pressure Management, #30 TAB [address] (Aspir-81) 81 Mg Tabdr Cholecalciferol (D3) 1,000 Unit Cap Clopidogrel (Plavix) 75 Mg Tab 75 MG PO DAILY for Blood Clot Prevention, #30 TAB 0 Refills Clotrimazole April (Clotrimazole Arpil) 10 Mg Troc 10 MG PO 5 TIMES A DAY for Fungal Infection for 7 Days, APRIL 0 Refills Insulin Aspart Inj (Novolog Inj) 1,000 Unit/10 Ml Vial 8 UNITS SQ TIDAC for Blood Sugar Management, #0 ML 0 Refills Insulin Degludec Inj (Tresiba Flextouch Pen Inj) 300 unit/3 ML Pen 30 UNITS SQ HS for Blood Sugar Management, #15 ML 0 Refills Linagliptin (Tradjenta) 5 Mg Tab 5 MG PO DAILY for Blood Sugar Management, #30 TAB 0 Refills Lisinopril (Lisinopril) 20 Mg Tab 20 MG PO BID, #30 TAB 0 Refills Sertraline (Sertraline) 50 Mg Tab 50 MG PO DAILY, #30 TAB 0 Refills Simvastatin (Simvastatin) 40 Mg Tab 40 MG PO HS for Cholesterol Management, #30 TAB 0 Refills Discontinued Medications: Amoxicillin-Clavulanate (Amoxicillin-Clavulanate) 875-125 mg Tab 875 MG PO BID for Infection, TAB 0 Refills not for use in CrCl <30 mL/minute Nery Rodriguez September 13, 2017 09:19 Merrill Mar MD September 13, 2017 13:39
[2017-09-13] MEDS ORDERED: guaiFENesin ER PO (09:20)
[2017-09-13] MEDS ORDERED: RESP: ALBUTEROL 2.5 MG/IPRATROPIUM 0.5 MG NEB (PRN) NEB ONE (09:30)
[2017-09-13 12:00] VITALS: BP 128/76; PULSE 82; RESP 15; TEMP 97.6; O2SAT 94
== END 2017-09-13 13:53 | disposition home or self-care (01) | DRG 194 ==
LOC: NEPE 15:02 → NEDA 17:12 → N06A 18:41
PROVIDERS: ADMIT Hospitalist; ATTEND Hospitalist
DX: J18.9 Pneumonia, unspecified organism (principal); K56.7 Ileus, unspecified; E11.22 Type 2 diabetes mellitus with diabetic chronic kidney disease; E11.51 Type 2 diabetes mellitus with diabetic peripheral angiopathy without gangrene; N18.3 Chronic kidney disease, stage 3 (moderate); F32.9 Major depressive disorder, single episode, unspecified; L27.0 Generalized skin eruption due to drugs and medicaments taken internally; T37.8X5A Adverse effect of other specified systemic anti-infectives and antiparasitics, initial encounter; E78.5 Hyperlipidemia, unspecified; I12.9 Hypertensive chronic kidney disease with stage 1 through stage 4 chronic kidney disease, or unspecified chronic kidney disease; Z72.0 Tobacco use; Z79.2 Long term (current) use of antibiotics; Z79.82 Long term (current) use of aspirin; Z79.4 Long term (current) use of insulin; Z79.51 Long term (current) use of inhaled steroids; Z79.899 Other long term (current) drug therapy; Z88.1 Allergy status to other antibiotic agents; Z88.8 Allergy status to other drugs, medicaments and biological substances; Z98.62 Peripheral vascular angioplasty status
CPT/HCPCS: 71045; 71046; 74018; 80048; 80053; 82550; 82552; 82948; 83605; 83735; 84155; 85025; 87040; 87449; 94150; 94640; 94664; 94667; 94668; 96374; 96375; J0456; J1200; J1815; J2405; J2765; J2930; J3480; J7040; J7050; J7512; J7608